=== PATIENT | male | born 1975 | race Caucasian/White ===

== ENCOUNTER 2019-08-21 00:55 | Inpatient (IN) | payer MEDICAID, SELFPAY ==
[2019-08-21] VITALS (11 sets, daily range): BP systolic 132–174; BP diastolic 80–108; PULSE 76–97; RESP 16–20; TEMP 36.6–37.7; O2SAT 93–98; BMI 36.1
[2019-08-21 01:56] LABS: Basophils % 0.2 %; Eosinophils % 0.1 %; Hematocrit 48.8 % (42.0-52.0); Hemoglobin 16.8 g/dL (11.7-16.6); Lymphocytes % 5.7 %; Mean Corpuscular HGB Conc 34.4 g/dL (30.0-36.0); Mean Corpuscular Hemoglobin 35.1 pg (28.0-34.0); Mean Corpuscular Volume 101.9 fL (80-94); Mean Platelet Volume 10.1 fL (7.4-10.4); Monocytes # 0.9 10^3/uL (0.2-0.9); Neutrophils # 15.85 10^3/uL (1.8-7.7); Neutrophils % 88.2 %; Nucleated Red Blood Cells % 0 %; Platelet Count 254 10^3/cmm (130-400); Red Blood Count 4.79 10^6/uL (4.1-5.3); Red Cell Distribution Width 12.3 % (12.1-15.1)
[2019-08-21 02:08] LABS: Alanine Aminotransferase 83 U/L (0-41); Albumin Level 4.3 g/dL (3.5-5.2); Alkaline Phosphatase 71 IU/L (40-130); Anion Gap 19.9 (5-19); Aspartate Amino Transferase 67 U/L (0-40); Blood Urea Nitrogen 11 mg/dL (6-20); Calcium 9.7 mg/dL (8.5-10.5); Carbon Dioxide 21 mmol/L (22-29); Chloride 94 mmol/L (98-107); Glomerular Filtration Rate 81.6 mL/min (90-130); Glucose 234 mg/dL (65-115); Osmolality Calculated 274 mOsm/kg (285-295); Potassium 4.9 mmol/L (3.5-5.1); Sodium 130 mmol/L (136-145); Total Bilirubin 0.7 mg/dL (0.15-1.2); Total Protein 8.3 g/dL (6.6-8.7)
[2019-08-21 02:16] LABS: Lipase 1662 U/L (13-60)
--- NOTE | 2019-08-21 02:31 | US_ITS ---
WS: [id number] RIGHT UPPER QUADRANT ULTRASOUND HISTORY: Abdominal Pain COMPARISON: CT 08/21/2019 Liver: 18.2 cm in length. Moderately enlarged liver with diffuse hepatic steatosis. No mass or bile d uct dilatation. Gallbladder: Contracted gallbladder with stones. Gallbladder wall is normal size. CBD: 0.6 cm Pancreas: Normal size and echogenicity. Right kidney: 11.3 cm in length. Normal echogenicity with no mass or hydronephrosis. Aorta and IVC: Unremarkable. No ascites. US/US gall bladder [id number] IMPRESSION: 1. Cholelithiasis. Contracted gallbladder. 2. Moderate hepatomegaly and hepatic steatosis.
--- NOTE | 2019-08-21 02:43 | CTR_ITS ---
PROCEDURE INFORMATION: Exam: CT Abdomen And Pelvis With Contrast Exam date and time: 08/21/2019 3:40 AM Age: 44 years old Clinical indication: Abdominal pain; Generalized TECHNIQUE: Imaging protocol: Computed tomography of the abdomen and pelvis with intravenous contrast. Radiation optimization: All CT scans at this facility use at least one of these dose optimization techniques: automated exposure control; mA and/or kV adjustment per patient size (includes targeted exams where dose is matched to clinical indication); or iterative reconstruction. Contrast material: [id number]; Contrast volume: 95 ml; Contrast route: INTRAVENOUS (IV); COMPARISON: US abdomen complete* [id number] 08/21/2019 3:06 AM RADIATION DOSE METRICS: Total DLP (mGy-cm): 1770.59 FINDINGS: Lungs: The lung bases are clear. Liver: There is fatty infiltration of the liver. Gallbladder and bile ducts: At least 1 small calcified gallstone is visible within the gallbladder. No other definite gallbladder abnormality by CT. No biliary tree dilation. Pancreas: Moderate presumed inflammatory changes around the pancreas, compatible with acute pancreatitis. Please correlate with clinical and laboratory evaluation. Mild to moderate amount of peripancreatic and retroperitoneal fluid. No definite pseudocyst. No pancreatic duct dilation. The pancreas appears to enhance homogeneously. Spleen: Unremarkable. Adrenals: Unremarkable. Kidneys and ureters: No hydronephrosis of either kidney. No visible ureteral calculus. Mild perinephric stranding bilaterally. This is a nonspecific appearance and could well be chronic. Possibility of pyelonephritis is not entirely excluded, please correlate clinically. Stomach and bowel: Possibility of somewhat thickened mucosa/wall in the distal stomach and proximal duodenum. This is a nonspecific appearance, and could be transient on CT, but could also represent evidence for gastritis/duodenitis or peptic ulcer disease. Please correlate clinically. There are no CT findings to strongly suggest diverticulitis. Appendix: The appendix is visualized and appears normal. Intraperitoneal space: No free air, ascites, or bowel distention. Vasculature: No evidence for abdominal aortic aneurysm. Lymph nodes: No retroperitoneal adenopathy. Bladder: Possibly some mild diffuse urinary bladder wall thickening. While nonspecific, this could indicate evidence for cystitis. Please correlate clinically. Reproductive: Essentially unremarkable for age. Bones/joints: No significant acute finding. Soft tissues: No significant acute finding. CT/CT abdomen pelvis w con* [id number] IMPRESSION: 1. Findings compatible with acute pancreatitis, see above details. 2. Cholelithiasis, details above. 3. Possible thickened mucosa/wall in the distal stomach and proximal duodenum, see above discussion. 4. Possible mild urinary bladder wall thickening, see above. 5. Mild perinephric stranding bilaterally, see above. 6. Other findings discussed above. Radiation Dose CTDIVOL = (mGy): DLP = 1770.59 (mGy-cm)
[2019-08-21] MEDS: sodium chloride 0.9% 1,000 ML 100 ML IV (03:30)
--- NOTE | 2019-08-21 03:31 | W.ED.ABDPA2 ---
HPI - Abdominal Pain General: Chief Complaint: Abdominal Pain Stated Complaint: abd pain; back pain Time Seen by Provider: 08/21/19 02:56 Source: patient Mode of arrival: ambulatory Limitations: no limitations History of Present Illness: HPI narrative: Mr. Copeland is a nice 44-year-old male comes in complaining of upper abdominal pain for the past 2 days. He said associated diaphoresis and nausea and vomiting. Denies any blood in his stools or dark tarry stools. Patient states he recently has been drinking heavily over 14 August hol. He denies any chest pain or shortness of breath. Associated Symptoms: Reports nausea and vomiting; Denies chills, coffee ground emesis, constipation, GI cramping, diarrhea, dysuria, fever(s), heartburn, hematochezia, hematuria, hematemesis, melena and syncope Review of Systems Const: Denies: fever(s), chills, body aches, fatigue, malaise or diaphoresis Eyes: Denies: change in vision, blurry vision, blind spots, photophobia, eye discharge or eye redness ENMT: Denies: throat pain, odynophagia, hoarseness, swelling of lips/tongue, oral sores, ear or mastoid pain, ear discharge, change in hearing or nasal discharge Card: Denies: chest pain, palpitations, irregular heart rhythm, edema, lightheadedness, syncope, pre-syncope, dyspnea on exertion or orthopnea Resp: Denies: dyspnea, productive cough, non-productive cough, wheezing, hemoptysis or chest congestion GI: Reports: abdominal pain, nausea and vomiting; Denies: hematemesis, coffee ground emesis, heartburn, diarrhea, constipation, GI cramping, hematochezia or melena : Denies: flank pain, dysuria, urinary frequency, urinary urgency or hematuria Musc: Denies: neck pain, back pain, extremity pain, extremity swelling, joint pain, joint swelling, joint redness, joint warmth or joint stiffness Skin/Breast: Denies: rash, pruritus, erythema, skin tenderness or jaundice Neuro: Denies: headache(s), numbness in extremities, weakness in extremities, sensory changes, lack of coordination, difficulty walking, dizziness, vertigo, confusion, Slurred speech present or seizure-like activity Mitch/Lymph: Denies: easy bruising, easy bleeding, petechiae, purpura or enlarged lymph nodes All/Imm: Denies: urticaria, throat swelling, tongue swelling, facial swelling or acute wheezing PFSH ED PFSH: Medical History Degenerative disc disease Hypertension Seizures Physical Exam Const: COMMON NORMALS: no acute distress, patient oriented x3, no limitations, healthy appearing and well nourished GENERAL APPEARANCE: cooperative, well kempt and well developed HENMT: COMMON NORMALS: normocephalic, atraumatic, external ears normal, EAC's normal and Normal external nose present HEAD & SCALP: normal to inspection, normocephalic and atraumatic FACE & SINUS: normal facial exam and face symmetric NOSE: Normal external nose present and Normal nares present EXTERNAL EAR: Yes external ears normal EXTERNAL AUDITORY CANAL: EAC's normal MOUTH: Normal oral and palatal mucosa present, lip normal and tongue normal Eye: COMMON NORMALS: Equal, round and reactive pupils present and conjunctivae normal GENERAL EYE: appearance normal, both eyes and all related structures ALIGNMENT: Yes alignment normal PERIORBITAL: periorbital findings normal EYELID: eyelids normal CONJUNCTIVA: Yes conjunctivae normal SCLERA: sclerae normal PUPIL: Yes Equal, round and reactive pupils present Neck/C-Spine: COMMON NORMALS: full ROM, no lymphadenopathy, supple, no meningeal signs and no JVD GENERAL: Yes normal visual inspection and Yes trachea midline Chest: COMMONS NORMALS: normal inspection of the chest and normal palpation of entire chest wall Resp: COMMON NORMALS: normal respiratory effort, No retractions and No use of accessory muscles EFFORT & INSPECTION: Yes able to speak in complete sentences and Yes symmetric chest movement AUSCULTATION: no crackles, no rales, no rhonchi and no wheezes Cardio: COMMON NORMALS: no JVD, regular rate, regular rhythm, S1 normal heart sound present and S2 normal heart sound present RATE: regular rate RHYTHM: regular rhythm HEART SOUNDS: S1 normal heart sound present, S2 normal heart sound present, no click, no gallops, no murmurs, no rubs and abnormal split S2 GI: COMMON NORMALS: Soft to palpation and No hepatosplenomegaly present PALPATION: Yes Soft to palpation, Yes Tenderness to palpation present (GI), No Guarding due to palpation present (GI), No Rigid due to palpation, Yes No hepatosplenomegaly present, No Hernia present, No Palpable mass present and No Pulsatile mass present : COMMON NORMALS: Yes no CVA tenderness BLADDER/KIDNEY EXAM: Yes no CVA tenderness Back/Pelvis: COMMON NORMALS: no CVA tenderness, thoracic and lumbar spine normal to inspection, no thoracic nor lumbar tenderness and thoraco-lumbar ROM normal Extremity: COMMON NORMALS: normal to inspection, full ROM, capillary refill normal, no joint enlargement, no clubbing, cyanosis or edema and no calf tenderness Neuro: COMMON NORMALS: patient oriented x3, CN's II-XII intact bilaterally, moves all extremities, no focal motor deficits and no sensory deficits noted MENINGEAL SIGNS: Yes no meningeal signs SPEECH: speech normal Psych: COMMON NORMALS: mental status grossly normal, Normal thought process present, cooperative, normal affect, speech normal and activity/motor behavior normal APPEARANCE: Yes well kempt SPEECH: Yes normal speech THOUGHT PROCESS: Normal thought process present Skin: COMMON NORMALS: no rashes or lesions noted, turgor normal, no jaundice, no petechiae and no mottling GENERAL SKIN EXAM: no rashes or lesions noted and turgor normal Course Vital Signs: Vital signs: Vital Signs Temperature 98.7 F 08/21/19 01:01 Pulse Rate 86 08/21/19 05:09 Respiratory Rate 16 08/21/19 05:09 Blood Pressure 169/90 08/21/19 05:09 Pulse Oximetry 98 08/21/19 05:09 MDM - Abdominal Pain MDM Narrative: Medical decision making narrative: Patient's ultrasound does not show evidence of common bile duct obstruction. Triglycerides are normal. Based upon his history that his pancreatitis is likely caused by alcohol and he is recently been binging. Patient will go ahead and be admitted to control his pain and to calm down the inflammation. He still getting IV fluids. The case was endorsed to Dr. Mercer and she is agreeable to admission. Lab Data: Attestation: I reviewed the patient's lab results. Labs: Lab Results 08/21/19 08/21/19 08/21/19 Range/Units 01:30 01:30 01:30 WBC 18.0 H (4.0-10.0) 10^3/ uL RBC 4.79 (4.1-5.3) 10^6/u L Hgb 16.8 H (11.7-16.6) g/dL Hct 48.8 (42.0-52.0) % MCV 101.9 H (80-94) fL MCH 35.1 H (28.0-34.0) pg MCHC 34.4 (30.0-36.0) g/dL RDW 12.3 (12.1-15.1) % Plt Count 254 (130-400) 10^3/c mm MPV 10.1 (7.4-10.4) fL Neut % (Auto) 88.2 % Lymph % (Auto) 5.7 % [place] % (Auto) 5.0 % Eos % (Auto) 0.1 % Baso % (Auto) 0.2 % Neut # (Auto) 15.85 H (1.8-7.7) 10^3/u L Lymph # (Auto) 1.0 (0.8-4.8) 10^3/u L [place] # (Auto) 0.9 (0.2-0.9) 10^3/u L Eos # (Auto) 0.0 (0.0-0.8) 10^3/u L Baso # (Auto) 0.0 (0.0-0.1) 10^3/u L Nucleated RBC % (a uto) 0 % Nucleated RBCs # 0.0 /100WBC Sodium 130 L (136-145) mmol/L Potassium 4.9 (3.5-5.1) mmol/L Chloride 94 L (98-107) mmol/L Carbon Dioxide 21 L (22-29) mmol/L Anion Gap 19.9 H (5-19) BUN 11 (6-20) mg/dL Creatinine 1.0 (0.7-1.2) mg/dL GFR Calculation 81.6 L (90-130) mL/min Glucose 234 H (65-115) mg/dL Calculated Osmolal ity 274 L (285-295) mOsm/k g Calcium 9.7 (8.5-10.5) mg/dL Total Bilirubin 0.7 (0.15-1.2) mg/dL AST 67 H (0-40) U/L ALT 83 H (0-41) U/L Alkaline Phosphata se 71 (40-130) IU/L Total Protein 8.3 (6.6-8.7) g/dL Albumin 4.3 (3.5-5.2) g/dL Globulin 4.0 (1.3-4.6) g/dL Triglycerides 269 H (0-150) mg/dL Lipase 1662 H (13-60) U/L Urine Color (Yellow) Urine Appearance (CLEAR) Urine pH (5-7) Ur Specific Gravit y (1.005-1.030) Urine Protein (Negative) Urine Glucose (UA) (Normal) Urine Ketones (Negative) Urine Blood (Negative) Urine Nitrate (Negative) Urine Bilirubin (NEGATIVE) Urine Urobilinogen (Negative) mg/dL Ur Leukocyte Shannan ase (Negative) Urine RBC (0-2) /hpf Urine WBC (0-5) /hpf Ur Squamous Epith Cells (0-5) Urine Bacteria (NONE) Ethyl Alcohol < 10 (0-10) mg/dL 08/21/19 Range/Units 03:20 WBC (4.0-10.0) 10^3/ uL RBC (4.1-5.3) 10^6/u L Hgb (11.7-16.6) g/dL Hct (42.0-52.0) % MCV (80-94) fL MCH (28.0-34.0) pg MCHC (30.0-36.0) g/dL RDW (12.1-15.1) % Plt Count (130-400) 10^3/c mm MPV (7.4-10.4) fL Neut % (Auto) % Lymph % (Auto) % [place] % (Auto) % Eos % (Auto) % Baso % (Auto) % Neut # (Auto) (1.8-7.7) 10^3/u L Lymph # (Auto) (0.8-4.8) 10^3/u L [place] # (Auto) (0.2-0.9) 10^3/u L Eos # (Auto) (0.0-0.8) 10^3/u L Baso # (Auto) (0.0-0.1) 10^3/u L Nucleated RBC % (a uto) % Nucleated RBCs # /100WBC Sodium (136-145) mmol/L Potassium (3.5-5.1) mmol/L Chloride (98-107) mmol/L Carbon Dioxide (22-29) mmol/L Anion Gap (5-19) BUN (6-20) mg/dL Creatinine (0.7-1.2) mg/dL GFR Calculation (90-130) mL/min Glucose (65-115) mg/dL Calculated Osmolal ity (285-295) mOsm/k g Calcium (8.5-10.5) mg/dL Total Bilirubin (0.15-1.2) mg/dL AST (0-40) U/L ALT (0-41) U/L Alkaline Phosphata se (40-130) IU/L Total Protein (6.6-8.7) g/dL Albumin (3.5-5.2) g/dL Globulin (1.3-4.6) g/dL Triglycerides (0-150) mg/dL Lipase (13-60) U/L Urine Color Yellow (Yellow) Urine Appearance Cloudy (CLEAR) Urine pH 5 (5-7) Ur Specific Gravit y 1.015 (1.005-1.030) Urine Protein Neg (Negative) Urine Glucose (UA) 4+ H (Normal) Urine Ketones Negative (Negative) Urine Blood Neg (Negative) Urine Nitrate Negative (Negative) Urine Bilirubin Neg (NEGATIVE) Urine Urobilinogen Norm (Negative) mg/dL Ur Leukocyte Shannan ase Negative (Negative) Urine RBC 0-4 H (0-2) /hpf Urine WBC 0-4 H (0-5) /hpf Ur Squamous Epith Cells None (0-5) Urine Bacteria None (NONE) Ethyl Alcohol (0-10) mg/dL Imaging Data ^: US: My impression: Ultrasound abdomen, tech interpretation -gallbladder with gallstones but no wall thickening. Common bile duct is normal. Kidney normal. Pancreas is inflamed. No free fluid. CT Abd/Pel: Radiologist's impression: [address] [place] [address] CT Scan Report Signed Patient: Nelson Copeland Unit #: [id number] : 1975 Age/Sex: 44 / M ADM Date: 08/21/19 Loc: ER Room/Bed: Attending Dr: Ordering Provider/Ordering MD: Jacqueline Uribe DO Date of Service: 08/21/19 Procedure(s): CT abdomen pelvis w con* [id number] Accession Number(s): [id number] Report Number: [id number] PROCEDURE INFORMATION: Exam: CT Abdomen And Pelvis With Contrast Exam date and time: 08/21/2019 3:40 AM Age: 44 years old Clinical indication: Abdominal pain; Generalized TECHNIQUE: Imaging protocol: Computed tomography of the abdomen and pelvis with intravenous contrast. Radiation optimization: All CT scans at this facility use at least one of these dose optimization techniques: automated exposure control; mA and/or kV adjustment per patient size (includes targeted exams where dose is matched to clinical indication); or iterative reconstruction. Contrast material: [id number]; Contrast volume: 95 ml; Contrast route: INTRAVENOUS (IV); COMPARISON: US abdomen complete* [id number] 08/21/2019 3:06 AM RADIATION DOSE METRICS: Total DLP (mGy-cm): 1770.59 FINDINGS: Lungs: The lung bases are clear. Liver: There is fatty infiltration of the liver. Gallbladder and bile ducts: At least 1 small calcified gallstone is visible within the gallbladder. No other definite gallbladder abnormality by CT. No biliary tree dilation. Pancreas: Moderate presumed inflammatory changes around the pancreas, compatible with acute pancreatitis. Please correlate with clinical and laboratory evaluation. Mild to moderate amount of peripancreatic and retroperitoneal fluid. No definite pseudocyst. No pancreatic duct dilation. The pancreas appears to enhance homogeneously. Spleen: Unremarkable. Adrenals: Unremarkable. Kidneys and ureters: No hydronephrosis of either kidney. No visible ureteral calculus. Mild perinephric stranding bilaterally. This is a nonspecific appearance and could well be chronic. Possibility of pyelonephritis is not entirely excluded, please correlate clinically. Stomach and bowel: Possibility of somewhat thickened mucosa/wall in the distal stomach and proximal duodenum. This is a nonspecific appearance, and could be transient on CT, but could also represent evidence for gastritis/duodenitis or peptic ulcer disease. Please correlate clinically. There are no CT findings to strongly suggest diverticulitis. Appendix: The appendix is visualized and appears normal. Intraperitoneal space: No free air, ascites, or bowel distention. Vasculature: No evidence for abdominal aortic aneurysm. Lymph nodes: No retroperitoneal adenopathy. Bladder: Possibly some mild diffuse urinary bladder wall thickening. While nonspecific, this could indicate evidence for cystitis. Please correlate clinically. Reproductive: Essentially unremarkable for age. Bones/joints: No significant acute finding. Soft tissues: No significant acute finding. CT/CT abdomen pelvis w con* [id number] IMPRESSION: 1. Findings compatible with acute pancreatitis, see above details. 2. Cholelithiasis, details above. 3. Possible thickened mucosa/wall in the distal stomach and proximal duodenum, see above discussion. 4. Possible mild urinary bladder wall thickening, see above. 5. Mild perinephric stranding bilaterally, see above. 6. Other findings discussed above. Radiation Dose CTDIVOL = (mGy): DLP = 1770.59 (mGy-cm) Dictated By: Los Higuera MD Signed By: Los Higuera MD Signed Date/Time: 08/21/19458 DD/ 6 Discharge Plan Discharge Patient Disposition: Admitted As Inpatient Clinical Impression: Pancreatitis Condition: Stable Prescriptions: No Action metoprolol succinate 50 mg tablet extended release 24 hr PO RF: 0 Coding Level of Care Code ED Aviation Safety Inspector for Chg Fwd Exam Comprehensive
[2019-08-21] MEDS: sodium chloride 0.9% 1,000 ML 999 ML IV (03:49)
[2019-08-21] MEDS: morphine 4 mg/mL SDV 1 mL IVP ×3 (03:49→21:59)
[2019-08-21] MEDS: ondansetron 2 mg/ML SDV 2 mL 4 MG IVP (03:50)
[2019-08-21] MEDS: iohexol 300 mg/mL 100 mL Btl IV (04:14)
[2019-08-21 04:38] LABS: Triglycerides 269 mg/dL (0-150)
[2019-08-21 04:42] LABS: Alcohol Level < 10 mg/dL (0-10)
[2019-08-21 05:04] LABS: Specific Gravity, Urine 1.015 (1.005-1.030); Urine Appearance Cloudy (CLEAR); Urine Color Yellow (Yellow); pH Urine 5 (5-7)
[2019-08-21 05:05] LABS: Bilirubin Urine Neg (NEGATIVE); Blood Urine Neg (Negative); Glucose Urine UA 4+ (Normal); Ketones Urine Negative (Negative); Leukocyte Esterase Urine Negative (Negative); Nitrate Urine Negative (Negative); Protein Urine Neg (Negative); RBC Urine 0-4 /hpf (0-2); Urobilinogen Urine Norm (Negative); WBC Urine 0-4 /hpf (0-5)
[2019-08-21] MEDS: pantoprazole 40 mg SDV 80 MG IVP (05:25)
[2019-08-21] MEDS: HYDROmorphone 1 mg/mL INJ 1 mL IVP (05:26)
--- NOTE | 2019-08-21 05:38 | PM.HP ---
Providers/Chief Complaint Chief Complaint: abd pain; back pain History of Present Illness Nelson Copeland is a 44 year old male Medications/Allergies Home Medications Medication Instructions Recorded Confirmed Last Taken Type metoprolol succinate PO 08/21/19 08/21/19 Unknown History Allergies Allergy/AdvReac Type Severity Reaction Status Date / Time No Known Allergies Allergy Verified 08/21/19 05:34 PFSH Acute PFSH: Medical History Degenerative disc disease Hypertension Seizures Vitals/I&O/Wt Last Vital Signs Temp 98.7 F 08/21/19 01:01 Pulse 86 08/21/19 05:09 Resp 16 08/21/19 05:09 BP 169/90 08/21/19 05:09 Pulse Ox 98 08/21/19 05:09 Weight last 48 hrs Weight 114.305 kg Data : 08/21/19 01:30 08/21/19 01:30 Other Labs: Liver Function 08/21/19 Range/Units 01:30 Total Bilirubin 0.7 (0.15-1.2) mg/dL AST 67 H (0-40) U/L ALT 83 H (0-41) U/L Alkaline Phosphatase 71 (40-130) IU/L Albumin 4.3 (3.5-5.2) g/dL Urine 08/21/19 Range/Units 03:20 Urine Color Yellow (Yellow) Urine Appearance Cloudy (CLEAR) Urine pH 5 (5-7) Ur Specific [place] 1.015 (1.005-1.030) Urine Protein Neg (Negative) Urine Glucose (UA) 4+ H (Normal) Laboratory Tests 08/21/19 08/21/19 01:30 01:30 Triglycerides 269 H Lipase 1662 H Ethyl Alcohol < 10 Micro: Microbiology 08/21/19 01:30 Blood Culture - Preliminary Blood SPECIMEN COLLECTED 08/21/19 01:30 Blood Culture - Preliminary Blood SPECIMEN COLLECTED CT Abd/Pel: Radiologist's impression: FINDINGS: Lungs: The lung bases are clear. Liver: There is fatty infiltration of the liver. Gallbladder and bile ducts: At least 1 small calcified gallstone is visible within the gallbladder. No other definite gallbladder abnormality by CT. No biliary tree dilation. Pancreas: Moderate presumed inflammatory changes around the pancreas, compatible with acute pancreatitis. Please correlate with clinical and laboratory evaluation. Mild to moderate amount of peripancreatic and retroperitoneal fluid. No definite pseudocyst. No pancreatic duct dilation. The pancreas appears to enhance homogeneously. Spleen: Unremarkable. Adrenals: Unremarkable. Kidneys and ureters: No hydronephrosis of either kidney. No visible ureteral calculus. Mild perinephric stranding bilaterally. This is a nonspecific appearance and could well be chronic. Possibility of pyelonephritis is not entirely excluded, please correlate clinically. Stomach and bowel: Possibility of somewhat thickened mucosa/wall in the distal stomach and proximal duodenum. This is a nonspecific appearance, and could be transient on CT, but could also represent evidence for gastritis/duodenitis or peptic ulcer disease. Please correlate clinically. There are no CT findings to strongly suggest diverticulitis. Appendix: The appendix is visualized and appears normal. Intraperitoneal space: No free air, ascites, or bowel distention. Vasculature: No evidence for abdominal aortic aneurysm. Lymph nodes: No retroperitoneal adenopathy. Bladder: Possibly some mild diffuse urinary bladder wall thickening. While nonspecific, this could indicate evidence for cystitis. Please correlate clinically. Reproductive: Essentially unremarkable for age. Bones/joints: No significant acute finding. Soft tissues: No significant acute finding. CT/CT abdomen pelvis w con* [id number] IMPRESSION: 1. Findings compatible with acute pancreatitis, see above details. 2. Cholelithiasis, details above. 3. Possible thickened mucosa/wall in the distal stomach and proximal duodenum, see above discussion. 4. Possible mild urinary bladder wall thickening, see above. 5. Mild perinephric stranding bilaterally, see above. 6. Other findings discussed above. Coding Level of Care Code Acute Gasoline Truck Operator for Siva Stoddard
--- NOTE | 2019-08-21 06:08 | P.CONIM_ITS ---
Providers/Reason For Consult Consulting Physican/Specialty*: frase Reason for Consult*: consult Meds/Allergies Home Medications and Allergies Home Medications Medication Instructions Recorded Confirmed Last Taken Type metoprolol succinate PO 08/21/19 08/21/19 Unknown History Allergies Allergy/AdvReac Type Severity Reaction Status Date / Time No Known Allergies Allergy Verified 08/21/19 05:34 Current Medications Current Medications Generic Name Dose Route Start Last Admin Trade Name Freq PRN Reason Stop Dose Admin Sodium Chloride 1,000 mls @ 100 mls/hr 08/21/19 03:30 08/21/19 03:30 Sodium Chloride 0.9% IV 100 mls/hr .Q10H DEBBIE Administration PFSH Acute PFSH: Medical History Degenerative disc disease Hypertension Seizures Vitals/I&O/Wt Last Vital Signs Temp 98.7 F 08/21/19 01:01 Pulse 86 08/21/19 05:09 Resp 16 08/21/19 05:09 BP 169/90 08/21/19 05:09 Pulse Ox 98 08/21/19 05:09 Weight last 48 hrs Weight 114.305 kg A&P Additional A&P Information testing Consult Attestations Time Spent in Patient Care: Greater than 35 minutes total time 58 Coding Level of Care Code Acute Cassandra Developer for Siva Stoddard
--- NOTE | 2019-08-21 06:14 | P.HP_ITS ---
Providers/Chief Complaint Admitting Physician: Eleanor Calles Primary Care Provider: Allison Galeano Chief Complaint: abd pain; back pain History of Present Illness Nelson Copeland is a 44 year old male who presented to the emergency room with chief complaint of abdominal discomfort. Symptoms have been going on for several days. He states that Saturday night he seemed like he had a lot of heartburn or reflux. He ate some cereal late and drank it with regular milk rather than almond milk. He began having abdominal pain that was generalized in nature along with increased belching and flatulence. He was drinking a lot of water to try to hydrate himself but continued to not feel well. The following day he ate some turnips and potatoes and other food that his mother had fixed and after that started having nausea and vomiting. He vomited multiple times but nausea was the persistent factor. He describes gas pain that he took a lot of Gas-X for without any relief. He has had a little bit of loose stool the last 2 days. No blood in his stools. He knows that he has had gallstones identified in the past and he thought maybe his gallstones were bothering him. He came in to be evaluated because the pain kept escalating and was severe in nature. No report of any fever. He has not really had anything quite like this before. In talking with him he had quite a few beers on August 13 as well as on August 14. He again drank quite a bit on August 17 the day before his symptoms began. He probably has a few beers every day. He has quit drinking for several years in the past without issue. He was ultimately found to have evidence of pancreatitis with a lipase greater than 1600. He has never had pancreatitis before. His white count was 18,000. He received some morphine and Zofran in the emergency room with clinical improvement. He is being admitted for further care. Review of Systems Const: Reports: change in appetite; Denies: fever(s) or chills Eyes: Denies: change in vision ENMT: Reports: dry mouth; Denies: throat pain or nasal congestion Card: Denies: chest pain, palpitations or edema Resp: Denies: dyspnea, productive cough or non-productive cough GI: Reports: abdominal pain, nausea, vomiting, heartburn, diarrhea, bloating, GI cramping, belching and excessive flatus; Denies: constipation or hematochezia : Reports: oliguria; Denies: difficulty urinating Musc: Reports: neck pain (needs surgery per his report) Skin/Breast: Denies: rash or pruritus Neuro: Reports: restless legs; Denies: headache(s), numbness in extremities, weakness in extremities, dizziness or seizure-like activity Psych: Reports: anxiety; Denies: depression Mitch/Lymph: Denies: easy bruising or easy bleeding Medications/Allergies Home Medications Medication Instructions Recorded Confirmed Last Taken Type alprazolam 0.5 - 1 mg PO DAILY PRN 08/21/19 08/21/19 Unknown History cyclobenzaprine 10 mg PO TID PRN 08/21/19 08/21/19 Unknown History fluticasone propionate [Flonase 2 spray INTRANASAL DAILY 08/21/19 08/21/19 08/20/19 13:00 History Allergy Relief] levetiracetam 1,000 mg PO BID 08/21/19 08/21/19 08/20/19 13:00 History lisinopril 40 mg PO DAILY 08/21/19 08/21/19 08/20/19 13:00 History metoprolol succinate 100 mg PO BID 08/21/19 08/21/19 08/20/19 13:00 History mupirocin 1 applic TOPICAL BID 08/21/19 08/21/19 08/20/19 13:00 History omeprazole 20 mg PO BID 08/21/19 08/21/19 08/20/19 13:00 History ropinirole 1 mg PO BEDTIME 08/21/19 08/21/19 08/20/19 13:00 History sertraline 200 mg PO DAILY 08/21/19 08/21/19 08/20/19 13:00 History sulfamethoxazole-trimethoprim 1 tab PO BID 08/21/19 08/21/19 08/20/19 13:00 History Allergies Allergy/AdvReac Type Severity Reaction Status Date / Time No Known Allergies Allergy Verified 08/21/19 05:34 PFSH Acute PFSH: Medical History (Updated 08/21/19 @ 08:10 by Eleanor Calles MD) Anxiety Degenerative disc disease neck GERD (gastroesophageal reflux disease) Hypertension Restless leg syndrome Seizures onset 2017, last 2019 Surgical History (Updated 08/21/19 @ 06:28 by Eleanor Calles MD) No pertinent past surgical history Family History (Updated 08/21/19 @ 06:29 by Eleanor Calles MD) Other CAD (coronary artery disease) Diabetes Hypertension Denies family history of Pancreatitis Social History (Updated 08/21/19 @ 06:30 by Eleanor Calles MD) Smoking and tobacco status: current every day smoker cigarettes Number of cigarettes per day: 11-20 Alcohol intake: current Alcohol type: beer Alcohol use comment: 6pack + Substance/Drug Use: never Household members: other Details: 12 year old son Vitals/I&O/Wt Last Vital Signs Temp 98.7 F 08/21/19 01:01 Pulse 86 08/21/19 05:09 Resp 16 08/21/19 05:09 BP 169/90 08/21/19 05:09 Pulse Ox 98 08/21/19 05:09 Weight last 48 hrs Weight 114.305 kg Physical Exam Const: OTHER: Alert, oriented x3, cooperative HENMT: OTHER: Normocephalic atraumatic, dry mucus membranes Eye: OTHER: Pupils equally round and reactive to light, injected sclera Neck/C-Spine: OTHER: Supple, larg, no thyromegaly or lymphadenopathy Resp: OTHER: Clear to auscultation bilaterally, no rales, rhonchi or wheezes noted, no accessory muscle use noted, not tachypneic Cardio: OTHER: Regular rate and rhythm, no murmurs gallops or rubs. Pulses equal throughout. GI: OTHER: Abdomen soft, tender to palpation upper quadrants, left>right, without rebound or guarding, nondistended with positive bowel sounds : OTHER: Deferred Extremity: NARRATIVE EXTREMITY EXAM: No cyanosis, clubbing or edema, no acute synovitis Neuro: OTHER: Face symmetric, speech clear, moves all extremities, no tremors or other abnormal movements Psych: OTHER: Normal affect Skin: OTHER: Several sores in different stages of healing to extensor surfaces Data : 08/21/19 01:30 08/21/19 01:30 Other Labs: Liver Function 08/21/19 Range/Units 01:30 Total Bilirubin 0.7 (0.15-1.2) mg/dL AST 67 H (0-40) U/L ALT 83 H (0-41) U/L Alkaline Phosphatase 71 (40-130) IU/L Albumin 4.3 (3.5-5.2) g/dL Urine 08/21/19 Range/Units 03:20 Urine Color Yellow (Yellow) Urine Appearance Cloudy (CLEAR) Urine pH 5 (5-7) Ur Specific [place] 1.015 (1.005-1.030) Urine Protein Neg (Negative) Urine Glucose (UA) 4+ H (Normal) Micro: Microbiology 08/21/19 01:30 Blood Culture - Preliminary Blood SPECIMEN COLLECTED 08/21/19 01:30 Blood Culture - Preliminary Blood SPECIMEN COLLECTED A&P Assessment and plan (1) Pancreatitis: Status: Acute Qualifiers: Acute pancreatitis complication: no infection or necrosis Chronicity: acute Pancreatitis type: alcohol induced Qualified Code(s): K85.20 - Alcohol induced acute pancreatitis without necrosis or infection (2) Daily consumption of alcohol: Status: Acute (3) Hypertension: Status: Chronic Qualifiers: Hypertension type: essential hypertension Qualified Code(s): I10 - Essential (primary) hypertension (4) Anxiety: Status: Chronic (5) Degenerative disc disease: Status: Chronic Qualifiers: Spinal region: unspecified cervical region Qualified Code(s): M50.30 - Other cervical disc degeneration, unspecified cervical region (6) Restless leg syndrome: Status: Chronic (7) Seizures: Status: Chronic (8) GERD (gastroesophageal reflux disease): Status: Chronic Qualifiers: Esophagitis presence: without esophagitis Qualified Code(s): K21.9 - Gastro-esophageal reflux disease without esophagitis (9) Seasonal allergies: Status: Chronic (10) Nicotine dependence, cigarettes, uncomplicated: Status: Chronic Additional A&P Information Inpatient admission IV fluids Clear liquid diet Pain control as needed Nicotine patch if needed Alcohol withdrawal protocol Home medications as ordered Reviewed with patient that continuing to consume alcohol increases the possibil ity of him having recurrent pancreatitis. Also reviewed with him that even if he were to quit drinking today he could have recurrent pancreatitis in the future. We talked about low-fat diet and the general management plan for pancreatitis. We talked briefly about ways to cut down on drinking as well as smoking cessation. Patient indicates that he quit drinking for a long time in the past. Lovenox for DVT prophylaxis PPI Plans were discussed with patient and he was given an opportunity to ask questions Supportive care otherwise Full code Attestations Medical Necessity Statement*: Anticipated stay greater than 2 midnights and patient presenting with first episode of pancreatitis related to alcohol use. He has had recent binge drinking. He has associated elevation in white count, mild elevation in transaminases and admits to daily alcohol use. Plans are as indicated. Coding Level of Care Code Acute Support Team Member for Evelyng Fwd Diagnoses Pancreatitis K85.20 Acute pancreatitis complication: no infection or necrosis Chronicity: acute Pancreatitis type: alcohol induced Daily consumption of alcohol Z78.9 Hypertension I10 Hypertension type: essential hypertension Anxiety F41.9 Degenerative disc disease M50.30 Spinal region: unspecified cervical region Restless leg syndrome G25.81 Seizures R56.9 GERD (gastroesophageal reflux disease) K21.9 Esophagitis presence: without esophagitis Seasonal allergies J30.2 Nicotine dependence, cigarettes, uncomplicated F17.210
[2019-08-21 08:34] LABS: Cholesterol 243 mg/dL (0-200); HDL Cholesterol 45 mg/dL (60-100); LDL Cholesterol Calculated 144 mg/dL (50-129); Triglycerides 269 mg/dL (0-150)
[2019-08-21 08:42] LABS: INR 0.99 (0.8-1.2)
[2019-08-21 08:43] LABS: Estmated Average Glucose 186; Hemoglobin A1C 8.1 % (4.0-6.0); Partial Thromboplastin Time 26.2 SECONDS (23.9-36.7)
--- NOTE | 2019-08-21 09:25 | PC.CHAP ---
Pastoral Care Encounter/Spiritual Assessment Type of Contact [] Declined multiple punch press operator visit [] Patient/Family/Request visit [] Outpatient visit [] Follow-up visit [] Physician referral [] Code/Alert [x] Routine visit [] Staff referral [] Actively dying [] Patient sleeping [] Family support [] [] Out of room [] Palliative care [] [] Receiving care in room [] Pre-surgical visit [] Trauma [] Long length of stay [] ICU visit [] Other: Relational/Emotional Strength [] Patient feels connected with others/family/visitors/staff [] Distress [] Loneliness/isolation [] Abandonment Spirituality of Patient [] Person of Madisyn [] Attends Rastafarian of their Madisyn [] Believes in Prayer [] Reads Bible or Hinduism materials [] There are Spiritual issues to be addressed Hand Presser Interventions [x] Prayer [x] Active listening [x] Non-anxious presence [x] Spiritual/emotional support [] Crisis/trauma care [] Spiritual counseling [] Bereavement support [] Provided bereavement packet [] Provided Bible/devotional materials [] Provided toy/stuffed animal, coloring book to patient or family member [] Provided Communion [] Anointing/[place] [] Salvation [x] Completed spiritual assessment [] Other: Impact on Illness or Injury [] Angry [] Fearful [] Anxious [] Often cries [] Exhaustion [] Unable to work [] Unable to attend yarsani [] Unable to walk/stand [] Unable to read [] Unable to drive [] Unable to eat/drink [] Unable to sleep [] Unable to be with family [] Patient intubated [] Other: Summary Patient still having major issues with abd. Trying to rest Time spent with patient 10 min
[2019-08-21 09:48] LABS: Glucose Point of Care 182 mg/dL (70-110)
[2019-08-21] MEDS: levETIRAcetam 500 mg Tablet 1000 MG PO ×2 (10:02→17:29)
[2019-08-21] MEDS: sulfamethoxazole-trimeth DS 160-800 mg Tablet 1 TAB PO ×2 (10:03→17:29)
[2019-08-21] MEDS: lisinopril 20 mg Tablet 40 MG PO (10:04)
[2019-08-21] MEDS: metoprolol succinate ER (24 HR) 100 mg Tablet PO ×2 (10:05→17:29)
[2019-08-21] MEDS: sertraline 100 mg Tablet 200 MG PO (10:06)
[2019-08-21] MEDS: pantoprazole DR 40 mg Tablet PO (10:07)
[2019-08-21] MEDS: docusate sodium 100 mg Capsule PO ×2 (10:08→17:30)
[2019-08-21] MEDS: multivitamin therapeutic Tablet 1 TAB PO (10:08)
[2019-08-21] MEDS: folic acid 1 mg Tablet PO (10:08)
[2019-08-21] MEDS: enoxaparin 40 mg/0.4 mL Syringe SUBCUT (10:10)
[2019-08-21] MEDS: sodium chloride 0.9% 1,000 ML 150 ML IV ×3 (10:23→22:00)
[2019-08-21] MEDS: fluticasone nasal spray 16gm Btl 2 SPRAY INTRANASAL ×2 (10:27→17:31)
[2019-08-21] MEDS: mupirocin oint 22 gm 1 APPLIC TOPICAL ×2 (10:29→17:31)
[2019-08-21 10:51] LABS: Glucose Point of Care 164 mg/dL (70-110)
--- NOTE | 2019-08-21 12:16 | PC.RESP ---
Smoking Cessation information and a schedule of classes sent to patient.
--- NOTE | 2019-08-21 13:04 | PC.RESP ---
Smoking Cessation information and a schedule of classes sent to patient.
[2019-08-21] MEDS: LORazepam 2 mg Tablet PO (14:46)
[2019-08-21 17:24] LABS: Glucose Point of Care 156 mg/dL (70-110)
--- NOTE | 2019-08-21 17:46 | PM.PN ---
Subjective Subjective: Interval history: improving pain today, tolerating small sips of clear liquid diet. Medications: Reviewed: Yes Vitals/I&O/Wt Last Vital Signs Temp 98.0 F 08/21/19 16:00 Pulse 76 08/21/19 16:00 Resp 18 08/21/19 16:00 BP 132/80 08/21/19 16:00 Pulse Ox 96 08/21/19 16:00 08/21/19 08/21/19 08/21/19 06:59 14:59 22:59 Intake Total 1000 / 1000 Output Total 400 / 400 600 / 1000 Balance -400 / -400 400 / 0 Weight last 48 hrs Weight 114.305 kg Physical Exam Narrative: EXAM NARRATIVE: GEN: Awake, alert and oriented, no acute distress CVS: S1S2 N RS: CTA B/L Abd: Soft, nt/nd , bs+, mild TTP over epigastric area BROACHING MACHINE OPERATOR: no focal neuro deficits Data : 08/21/19 01:30 08/21/19 01:30 Micro: Microbiology 08/21/19 01:30 Blood Culture - Preliminary Blood SPECIMEN COLLECTED 08/21/19 01:30 Blood Culture - Preliminary Blood SPECIMEN COLLECTED A&P Assessment and plan (1) Pancreatitis: Status: Acute Qualifiers: Acute pancreatitis complication: no infection or necrosis Chronicity: acute Pancreatitis type: alcohol induced Qualified Code(s): K85.20 - Alcohol induced acute pancreatitis without necrosis or infection (2) Daily consumption of alcohol: Status: Acute (3) Hypertension: Status: Chronic Qualifiers: Hypertension type: essential hypertension Qualified Code(s): I10 - Essential (primary) hypertension (4) Anxiety: Status: Chronic (5) Degenerative disc disease: Status: Chronic Qualifiers: Spinal region: unspecified cervical region Qualified Code(s): M50.30 - Other cervical disc degeneration, unspecified cervical region (6) Restless leg syndrome: Status: Chronic (7) Seizures: Status: Chronic (8) GERD (gastroesophageal reflux disease): Status: Chronic Qualifiers: Esophagitis presence: without esophagitis Qualified Code(s): K21.9 - Gastro-esophageal reflux disease without esophagitis (9) Seasonal allergies: Status: Chronic (10) Nicotine dependence, cigarettes, uncomplicated: Status: Chronic Additional A&P Information Inpatient admission IV fluids continue clear liquid diet for now Pain control as needed Nicotine patch if needed Alcohol withdrawal protocol Home medications as ordered Lovenox for DVT prophylaxis PPI Full code Attestations Medical Necessity Statement*: acute pancretaitis, need for IVF and supportive management Coding Level of Care Code Acute Interventional Sale Consultant for g Fwd Diagnoses Pancreatitis K85.20 Acute pancreatitis complication: no infection or necrosis Chronicity: acute Pancreatitis type: alcohol induced Daily consumption of alcohol Z78.9 Hypertension I10 Hypertension type: essential hypertension Anxiety F41.9 Degenerative disc disease M50.30 Spinal region: unspecified cervical region Restless leg syndrome G25.81 Seizures R56.9 GERD (gastroesophageal reflux disease) K21.9 Esophagitis presence: without esophagitis Seasonal allergies J30.2 Nicotine dependence, cigarettes, uncomplicated F17.210
[2019-08-21 18:40] LABS: Blood Urea Nitrogen 11 mg/dL (6-20); Calcium 8.9 mg/dL (8.5-10.5); Carbon Dioxide 25 mmol/L (22-29); Chloride 98 mmol/L (98-107); Glomerular Filtration Rate 81.6 mL/min (90-130); Glucose 136 mg/dL (65-115); Magnesium 1.5 mg/dL (1.7-2.3); Osmolality Calculated 274 mOsm/kg (285-295); Phosphorus 3.7 mg/dL (2.5-4.5); Sodium 133 mmol/L (136-145)
[2019-08-21 19:33] LABS: Anion Gap 14.4 (5-19); Potassium 4.4 mmol/L (3.5-5.1)
[2019-08-21 21:23] LABS: Glucose Point of Care 122 mg/dL (70-110)
[2019-08-22] VITALS: BP 133/82; PULSE 89; RESP 20; TEMP 37.3; O2SAT 93
[2019-08-22 04:00] VITALS: BP 138/91; PULSE 84; RESP 22; TEMP 37.8; O2SAT 94
[2019-08-22 04:44] LABS: Basophils # 0.1 10^3/uL (0.0-0.1); Basophils % 0.4 %; Eosinophils # 0.1 10^3/uL (0.0-0.8); Eosinophils % 0.5 %; Hemoglobin 14.7 g/dL (11.7-16.6); Lymphocytes # 2.1 10^3/uL (0.8-4.8); Lymphocytes % 13.7 %; Mean Corpuscular HGB Conc 33.4 g/dL (30.0-36.0); Mean Corpuscular Hemoglobin 34.9 pg (28.0-34.0); Mean Corpuscular Volume 104.5 fL (80-94); Mean Platelet Volume 10.2 fL (7.4-10.4); Monocytes # 1.3 10^3/uL (0.2-0.9); Monocytes % 8.7 %; Neutrophils # 11.42 10^3/uL (1.8-7.7); Neutrophils % 75.8 %; Nucleated Red Blood Cells % 0 %; Platelet Count 211 10^3/cmm (130-400); Red Blood Count 4.21 10^6/uL (4.1-5.3); Red Cell Distribution Width 12.5 % (12.1-15.1); White Blood Count 15.1 10^3/uL (4.0-10.0)
[2019-08-22 05:22] LABS: Alanine Aminotransferase 45 U/L (0-41); Albumin Level 3.3 g/dL (3.5-5.2); Alkaline Phosphatase 52 IU/L (40-130); Anion Gap 13.2 (5-19); Aspartate Amino Transferase 31 U/L (0-40); Blood Urea Nitrogen 12 mg/dL (6-20); Calcium 8.3 mg/dL (8.5-10.5); Carbon Dioxide 26 mmol/L (22-29); Chloride 98 mmol/L (98-107); Globulin 4.2 g/dL (1.3-4.6); Glomerular Filtration Rate 73.1 mL/min (90-130); Glucose 118 mg/dL (65-115); Osmolality Calculated 273 mOsm/kg (285-295); Potassium 4.2 mmol/L (3.5-5.1); Sodium 133 mmol/L (136-145); Total Protein 7.5 g/dL (6.6-8.7)
[2019-08-22 05:36] LABS: Lipase 234 U/L (13-60)
[2019-08-22] MEDS: sodium chloride 0.9% 1,000 ML 150 ML IV ×2 (06:29→20:17)
[2019-08-22 06:50] LABS: Glucose Point of Care 131 mg/dL (70-110)
[2019-08-22 07:32] VITALS: BP 143/93; PULSE 80; RESP 18; TEMP 37.2; O2SAT 95
[2019-08-22] MEDS: enoxaparin 40 mg/0.4 mL Syringe SUBCUT (08:44)
[2019-08-22] MEDS: fluticasone nasal spray 16gm Btl 2 SPRAY INTRANASAL (08:44)
[2019-08-22] MEDS: multivitamin therapeutic Tablet 1 TAB PO (08:46)
[2019-08-22] MEDS: pantoprazole DR 40 mg Tablet PO (08:46)
[2019-08-22] MEDS: folic acid 1 mg Tablet PO (08:46)
[2019-08-22] MEDS: sulfamethoxazole-trimeth DS 160-800 mg Tablet 1 TAB PO ×2 (08:46→17:15)
[2019-08-22] MEDS: metoprolol succinate ER (24 HR) 100 mg Tablet PO ×2 (08:46→17:15)
[2019-08-22] MEDS: sertraline 100 mg Tablet 200 MG PO (08:47)
[2019-08-22] MEDS: lisinopril 20 mg Tablet 40 MG PO (08:47)
[2019-08-22] MEDS: levETIRAcetam 500 mg Tablet 1000 MG PO ×2 (08:47→17:15)
[2019-08-22] MEDS: thiamine 100 mg Tablet PO (08:47)
[2019-08-22 10:39] LABS: Glucose Point of Care 117 mg/dL (70-110)
[2019-08-22 11:31] VITALS: BP 140/88; PULSE 76; RESP 18; TEMP 36.9; O2SAT 97
[2019-08-22 15:02] VITALS: BP 117/75; PULSE 73; RESP 18; TEMP 37.1; O2SAT 95
--- NOTE | 2019-08-22 15:57 | P.PN_ITS ---
Subjective Subjective: Interval history: overnight temperatire to 100.1F, leukocytosis trending down to 15, feels improved though sore, diet advanced to GI soft this morning. No vomiting Medications: Reviewed: Yes Vitals/I&O/Wt Last Vital Signs Temp 98.7 F 08/22/19 15:02 Pulse 73 08/22/19 15:02 Resp 18 08/22/19 15:02 BP 117/75 08/22/19 15:02 Pulse Ox 95 08/22/19 15:02 08/22/19 08/22/19 08/22/19 06:59 14:59 22:59 Intake Total 1400 / 3177.5 960 / 960 Output Total 320 / 1620 9 Balance 1080 / 1557.5 951 / 951 Weight last 48 hrs Weight 114.305 kg Physical Exam Narrative: EXAM NARRATIVE: GEN: Awake, alert and oriented, no acute distress CVS: S1S2 N RS: CTA B/L Abd: Soft, non distended, TTP in mid epigastric area LOAN REVIEW OFFICER: no focal neuro deficits Data : 08/22/19 04:02 08/22/19 04:02 Micro: Microbiology 08/21/19 01:30 Blood Culture - Preliminary Blood NEGATIVE TO DATE 08/21/19 01:30 Blood Culture - Preliminary Blood NEGATIVE TO DATE A&P Assessment and plan (1) Pancreatitis: Status: Acute Qualifiers: Acute pancreatitis complication: no infection or necrosis Chronicity: acute Pancreatitis type: alcohol induced Qualified Code(s): K85.20 - Alcohol induced acute pancreatitis without necrosis or infection (2) Daily consumption of alcohol: Status: Acute (3) Hypertension: Status: Chronic Qualifiers: Hypertension type: essential hypertension Qualified Code(s): I10 - Essential (primary) hypertension (4) Anxiety: Status: Chronic (5) Degenerative disc disease: Status: Chronic Qualifiers: Spinal region: unspecified cervical region Qualified Code(s): M50.30 - Other cervical disc degeneration, unspecified cervical region (6) Restless leg syndrome: Status: Chronic (7) Seizures: Status: Chronic (8) GERD (gastroesophageal reflux disease): Status: Chronic Qualifiers: Esophagitis presence: without esophagitis Qualified Code(s): K21.9 - Gastro-esophageal reflux disease without esophagitis (9) Seasonal allergies: Status: Chronic (10) Nicotine dependence, cigarettes, uncomplicated: Status: Chronic Additional A&P Information Acute pancreatitis likely 2/2 alcohol intake Clinically improving with advancing diet slowly, No further emesis Pain persisting but better , still sore Low grade fever overnight, more like to be inflammatory in nature. Blood cx negative to date Liver enzymes trending down Continue supportive management incl IV fluids, slowly advance diet , add toradol Given fevers overnight, need to monitor curve. If high grade fever or clinical worsening occur, will need f/up CT to assess for necrotizing pancreatitis Lovenox for DVT prophylaxis PPI Full code Attestations Medical Necessity Statement*: improving pancreatitis, low grade fever needs monitoring, discharge if tolerating po intake and afebrile ~24 hrs Coding Level of Care Code Acute Senior Vice President & General Counsel for g Fwd Diagnoses Pancreatitis K85.20 Acute pancreatitis complication: no infection or necrosis Chronicity: acute Pancreatitis type: alcohol induced Daily consumption of alcohol Z78.9 Hypertension I10 Hypertension type: essential hypertension Anxiety F41.9 Degenerative disc disease M50.30 Spinal region: unspecified cervical region Restless leg syndrome G25.81 Seizures R56.9 GERD (gastroesophageal reflux disease) K21.9 Esophagitis presence: without esophagitis Seasonal allergies J30.2 Nicotine dependence, cigarettes, uncomplicated F17.210
[2019-08-22 16:56] LABS: Glucose Point of Care 127 mg/dL (70-110)
[2019-08-22] MEDS: LORazepam 2 mg Tablet PO (17:16)
[2019-08-22 19:16] VITALS: BP 132/83; PULSE 74; RESP 18; TEMP 37.1; O2SAT 96
[2019-08-22] MEDS: ropinirole 1 mg Tablet PO (20:14)
[2019-08-22 21:02] LABS: Glucose Point of Care 131 mg/dL (70-110)
[2019-08-23] VITALS: BP 141/83; PULSE 79; RESP 20; TEMP 37.5; O2SAT 96
[2019-08-23] MEDS: sodium chloride 0.9% 1,000 ML 100 ML IV (01:49)
[2019-08-23 04:00] VITALS: BP 164/87; PULSE 70; RESP 20; TEMP 37.4; O2SAT 95
--- NOTE | 2019-08-23 06:49 | PC.NURSE ---
The day shift nurse told me this morning not to do blood sugar check. The day shift aid will be notified.
[2019-08-23 07:55] VITALS: BP 146/89; PULSE 70; RESP 14; TEMP 36.4; O2SAT 95
[2019-08-23] MEDS: enoxaparin 40 mg/0.4 mL Syringe SUBCUT (08:25)
[2019-08-23] MEDS: fluticasone nasal spray 16gm Btl 2 SPRAY INTRANASAL (08:25)
[2019-08-23] MEDS: lisinopril 20 mg Tablet 40 MG PO (08:26)
[2019-08-23] MEDS: levETIRAcetam 500 mg Tablet 1000 MG PO (08:26)
[2019-08-23] MEDS: folic acid 1 mg Tablet PO (08:27)
[2019-08-23] MEDS: thiamine 100 mg Tablet PO (08:27)
[2019-08-23] MEDS: sulfamethoxazole-trimeth DS 160-800 mg Tablet 1 TAB PO (08:27)
[2019-08-23] MEDS: pantoprazole DR 40 mg Tablet PO (08:27)
[2019-08-23] MEDS: sertraline 100 mg Tablet 200 MG PO (08:27)
[2019-08-23] MEDS: multivitamin therapeutic Tablet 1 TAB PO (08:27)
[2019-08-23] MEDS: metoprolol succinate ER (24 HR) 100 mg Tablet PO (08:27)
[2019-08-23 10:44] VITALS: BP 146/89; PULSE 70; RESP 14; TEMP 36.4; O2SAT 95
--- NOTE | 2019-08-23 16:22 | PM.DCS ---
Discharge Providers Date of Admission: 08/21/19 06:05 Date of Discharge: August 23, 2019 Attending Provider at Admission: Eleanor Calles MD Attending Provider at Discharge: Kaelyn Burks MD Diagnoses at Discharge Discharge Diagnosis (1) Pancreatitis: Status: Acute Qualifiers: Acute pancreatitis complication: no infection or necrosis Chronicity: acute Pancreatitis type: alcohol induced Qualified Code(s): K85.20 - Alcohol induced acute pancreatitis without necrosis or infection (2) Daily consumption of alcohol: Status: Acute (3) Hypertension: Status: Chronic Qualifiers: Hypertension type: essential hypertension Qualified Code(s): I10 - Essential (primary) hypertension (4) Anxiety: Status: Chronic (5) Degenerative disc disease: Status: Chronic Problem details: neck Qualifiers: Spinal region: unspecified cervical region Qualified Code(s): M50.30 - Other cervical disc degeneration, unspecified cervical region (6) Restless leg syndrome: Status: Chronic (7) Seizures: Status: Chronic Problem details: onset 2017, last 2018 (8) GERD (gastroesophageal reflux disease): Status: Chronic Qualifiers: Esophagitis presence: without esophagitis Qualified Code(s): K21.9 - Gastro-esophageal reflux disease without esophagitis (9) Seasonal allergies: Status: Chronic (10) Nicotine dependence, cigarettes, uncomplicated: Status: Chronic Reason for Visit Reason for Visit: abd pain; back pain Hospital Course Discharge Summary: Nelson Copeland is a 44 year old male who presented to the emergency room with chief complaint of abdominal pain that started shortly after binge drinking recently. He also had some loose stools and gastric reflux. On evaluation in the ER he was found to have a lipase greater than 1600, likely to be alcohol induced. He received supportive management with pain control, IV hydration, GI rest initially with slow advancement of diet. Patient regained his appetite on the day of discharge. He was eating GI soft diet and tolerating it very well. He felt well overall and was therefore discharged today. Of note he did have fever of 100.5 and then 99, likely related to inflammation from the pancreas. Complications noted otherwise and abdominal exam was significantly improved, therefore it was prudent for him to be discharged. He has been asked to monitor for recurrent signs of abdominal pain and/or fever greater than 101 Fahrenheit at that may correlate with complications of pancreatitis especially necrotizing pancreatitis. He is instructed to return to the ED should such symptoms present. Physical Exam Narrative: EXAM NARRATIVE: GEN: Awake, alert and oriented, no acute distress CVS: S1S2 N RS: CTA B/L Abd: Soft, nt/nd , bs+ DIRECTOR OF EDUCATION: no focal neuro deficits Discharge Data Data Completed and Pending: Completed Studies During Hospitalization Category Date Time Status CT abdomen pelvis w con* [id number] Stat Cat Scan 08/21/19 02:43 Completed US gall bladder 7 [id number] Urgent Ultrasound 08/21/19 02:31 Completed Pending at discharge Category Date Time Status Blood Culture Sta t Lab 08/21/19 01:30 Results Labs from last 24 hours 08/22/19 08/22/19 20:43 16:51 POC Glucose 131 127 Vitals: Last Vital Signs Temp 97.6 F 08/23/19 10:44 Pulse 70 08/23/19 10:44 Resp 14 08/23/19 10:44 BP 146/89 08/23/19 10:44 Pulse Ox 95 08/23/19 10:44 Discharge Plan Discharge Patient Disposition: Home, Self-Care Condition: Stable Prescriptions: New acetaminophen 500 mg Tablet 500 mg PO Q6H PRN (Reason: Mild Pain Or Increase Temp) Qty: 0 RF: 0 folic acid 1 mg Tablet 1 mg PO DAILY 30 Days RF: 0 Vitamin B-1 (mononitrate) 100 mg Tablet 100 mg PO DAILY Qty: 0 RF: 0 Thera 400 mcg Tablet 1 tab PO DAILY 30 Days RF: 0 Continued cyclobenzaprine 10 mg tablet 10 mg PO TID PRN (Reason: Muscle Pain) RF: 0 ropinirole 1 mg tablet 1 mg PO BEDTIME RF: 0 alprazolam 1 mg tablet 0.5 - 1 mg PO DAILY PRN (Reason: Anxiety) RF: 0 metoprolol succinate 100 mg tablet extended release 24 hr 100 mg PO BID RF: 0 sertraline 100 mg tablet 200 mg PO DAILY RF: 0 omeprazole 20 mg capsule,delayed release(DR/EC) 20 mg PO BID RF: 0 mupirocin 2 % ointment 1 applic TOPICAL BID RF: 0 lisinopril 40 mg tablet 40 mg PO DAILY RF: 0 Flonase Allergy Relief 50 mcg/actuation [place],Suspension 2 spray INTRANASAL DAILY RF: 0 levetiracetam 1,000 mg tablet 1,000 mg PO BID RF: 0 Discontinued sulfamethoxazole-trimethoprim 800-160 mg tablet 1 tab PO BID RF: 0 Discharge Orders: Discharge Order (Routine); Ordered 08/23/19 Ordered By: Kealyn Burks Referrals: primary care,provider [Other] Galeano,RICA Cramer [Referring] - (Call and make an appointment to be seen within the next 7 to 10 days for a follow up.) Discharge Diet: Advance as tolerated Discharge Activity: Resume usual activity Patient Instructions: Metoprolol (By mouth), Acetaminophen (By mouth), Thiamine (Vitamin B-1) (By mouth), Folic Acid (By mouth), Hypertension, Pancreatitis (DC) Discharge Date/Time: 08/23/19 10:50 Discharge Attestations Time Spent in Discharge Care*: less than 30 min Quality Metrics Clinical Quality Measures During this hospital stay, did patient experience: None Coding Level of Care Code Acute Residential Recycle Driver for Evelyng Fwd Diagnoses Pancreatitis K85.20 Acute pancreatitis complication: no infection or necrosis Chronicity: acute Pancreatitis type: alcohol induced Daily consumption of alcohol Z78.9 Hypertension I10 Hypertension type: essential hypertension Anxiety F41.9 Degenerative disc disease M50.30 Spinal region: unspecified cervical region Restless leg syndrome G25.81 Seizures R56.9 GERD (gastroesophageal reflux disease) K21.9 Esophagitis presence: without esophagitis Seasonal allergies J30.2 Nicotine dependence, cigarettes, uncomplicated F17.210
== END 2019-08-23 10:50 | disposition home or self-care (01) | DRG 440 ==
LOC: ER 05:42 → MEDSURG 06:26
PROVIDERS: Emergency Medicine; Physician Assistant; Admitting Provider Hospitalist; Visit Provider Student in an Organized Health Care Education/Training Program
DX: K85.20 Alcohol induced acute pancreatitis without necrosis or infection (principal); I10 Essential (primary) hypertension; F10.229 Alcohol dependence with intoxication, unspecified; F41.9 Anxiety disorder, unspecified; M50.30 Other cervical disc degeneration, unspecified cervical region; G25.81 Restless legs syndrome; R56.9 Unspecified convulsions; K21.9 Gastro-esophageal reflux disease without esophagitis; F17.210 Nicotine dependence, cigarettes, uncomplicated; J30.2 Other seasonal allergic rhinitis; Y90.0 Blood alcohol level of less than 20 mg/100 ml
CPT/HCPCS: 12345; 36415; 36416; 74177; 76700; 76705; 80048; 80053; 80061; 80307; 81001; 82962; 83036; 83690; 83735; 84100; 84478; 85025; 85610; 85730; 87040; 96372; 96375; 99282; C9113; J1170; J1650; J1815; J2270; J2405; J3411; J7030; Q9967

== ENCOUNTER 2022-04-02 04:08 | Observation (INO) | payer MEDICARE, MEDICAID, SELFPAY ==
[2022-04-02] VITALS (13 sets, daily range): BP systolic 161–190; BP diastolic 88–119; PULSE 62–79; RESP 16–18; TEMP 36.7–37; O2SAT 94–98; BMI 35.2
--- NOTE | 2022-04-02 04:11 | CTR_ITS ---
PROCEDURE INFORMATION: Exam: CT Abdomen And Pelvis With Contrast Exam date and time: 04/02/2022 4:27 AM Age: 47 years old Clinical indication: Generalized; Prior surgery; Surgery date: 6+ months; Surgery type: Cholecystectomy; Patient HX: PT here from home by EMS for eval of abdominal pain and flank pain that began yesterday and worsened throughout the day. PT also reports diarrhea for the past 3-4 days. ; Additional info: Abd pain TECHNIQUE: Imaging protocol: Computed tomography of the abdomen and pelvis with contrast. Radiation optimization: All CT scans at this facility use at least one of these dose optimization techniques: automated exposure control; mA and/or kV adjustment per patient size (includes targeted exams where dose is matched to clinical indication); or iterative reconstruction. Contrast material: OMNI 350; Contrast volume: 100 ml; Contrast route: INTRAVENOUS (IV); Other protocol: This patient has received 0 known CTs and 0 known cardiac nuclear medicine studies in the 12 months prior to the current study. COMPARISON: CT abdomen pelvis w con* [id number] 08/21/2019 4:05 AM RADIATION DOSE METRICS: Total DLP (mGy-cm): 1052.45 FINDINGS: Liver: Hepatic steatosis. Gallbladder and bile ducts: Cholecystectomy. Pancreas: There is edema involving the pancreas and within the anterior perirenal space, consistent with acute interstitial pancreatitis. No drainable fluid collections are seen. Spleen: Normal. No splenomegaly. Adrenal glands: Normal. No mass. Kidneys and ureters: Normal. No hydronephrosis. Stomach and bowel: Colonic diverticulosis without evidence of diverticulitis. No bowel obstruction. Appendix: No evidence of appendicitis. Intraperitoneal space: Unremarkable. No free air. No significant fluid collection. Vasculature: Unremarkable. No abdominal aortic aneurysm. Lymph nodes: Unremarkable. No enlarged lymph nodes. Urinary bladder: Unremarkable as visualized. Reproductive: Unremarkable as visualized. Bones/joints: Unremarkable. No acute fracture. Soft tissues: Unremarkable. CT/CT abdomen pelvis w con* [id number] IMPRESSION: Acute interstitial pancreatitis. No drainable fluid collections.
--- NOTE | 2022-04-02 04:12 | ED_ITS ---
HPI - Abdominal Pain General: Chief Complaint: Abdominal Pain Stated Complaint: abd pain, back pain Time Seen by Provider: 04/02/22 04:08 Source: patient Mode of arrival: ambulatory Limitations: no limitations History of Present Illness: 47-year-old male who has had a history of pancreatitis in the past he states he has been having epigastric abdominal pain since yesterday states the pain was much worse at 2 AM she states the pain is currently 5 out of 10 after receiving pain meds in route. He denies any vomiting has had nausea has had some diarrhea as well. He has had a cholecystectomy in the past. Associated Symptoms: Reports nausea; Denies chills, dysuria and fever(s) Review of Systems Const: Denies: fever(s), chills, body aches or change in appetite Eyes: Denies: blurry vision or eye discomfort ENMT: Denies: throat pain or dental pain Card: Denies: chest pain Resp: Denies: dyspnea GI: Reports: abdominal pain and nausea : Denies: dysuria Musc: Denies: neck pain or back pain Skin/Breast: Denies: rash Neuro: Denies: headache(s) Psych: Denies: depression Mitch/Lymph: Denies: easy bruising All/Imm: Denies: urticaria PFSH ED PFSH: Medical History Anxiety Degenerative disc disease neck GERD (gastroesophageal reflux disease) Hypertension Restless leg syndrome Seizures onset 2017, last 2018 Surgical History No pertinent past surgical history Family History Other CAD (coronary artery disease) Diabetes Hypertension Denies family history of Pancreatitis Social History Smoking and tobacco status: current every day smoker cigarettes Alcohol intake: current Alcohol type: beer Household members: other Details: 12 year old son Physical Exam Const: COMMON NORMALS: no acute distress, patient oriented x3 and healthy appearing HENMT: COMMON NORMALS: normocephalic and atraumatic HEAD & SCALP: normocephalic and atraumatic Eye: COMMON NORMALS: Equal, round and reactive pupils present and EOMs intact bilaterally PUPIL: Yes Equal, round and reactive pupils present Neck/C-Spine: COMMON NORMALS: full ROM and supple Chest: COMMONS NORMALS: normal inspection of the chest and normal palpation of entire chest wall Resp: COMMON NORMALS: normal respiratory effort, No retractions, No use of accessory muscles and clear to auscultation bilaterally AUSCULTATION: clear to auscultation bilaterally Cardio: COMMON NORMALS: regular rate, regular rhythm and No murmurs present (Cardio) RATE: regular rate RHYTHM: regular rhythm GI: COMMON NORMALS: Normal to inspection, nondistended, normoactive bowel sounds present, Soft to palpation and no masses PALPATION: Yes Soft to palpation OTHER: epigastric tenderness Extremity: COMMON NORMALS: normal to inspection and full ROM Neuro: COMMON NORMALS: patient oriented x3, moves all extremities and no focal motor deficits Psych: COMMON NORMALS: mental status grossly normal, Normal thought process present and cooperative THOUGHT PROCESS: Normal thought process present Skin: COMMON NORMALS: no rashes or lesions noted and no wounds GENERAL SKIN EXAM: no rashes or lesions noted Course Vital Signs: Vital signs: Vital Signs Temperature 98.4 F 04/02/22 04:10 Pulse Rate 79 04/02/22 04:10 Respiratory Rate 16 04/02/22 04:20 Blood Pressure 179/105 04/02/22 04:10 Pulse Oximetry 95 04/02/22 04:10 Oxygen Delivery Me thod 04/02/22 04:10 MDM - Abdominal Pain Medical Decision Making Patient presents with abdominal pain he does have an elevated lipase and pancreatitis seen on CT scan spoke to hospitalist will admit this time. Lab Data 04/02/22 04:13 04/02/22 04:13 Labs/Radiology: Radiology Impressions Abdomen/Pelvis CT 04/02/22 04:11 IMPRESSION: Acute interstitial pancreatitis. No drainable fluid collections. Laboratory Results WBC 13.9 10^3/uL (4.0-10.0) H 04/02/22 04:13 RBC 4.43 10^6/uL (4.1-5.3) 04/02/22 04:13 Hgb 15.4 g/dL (11.7-16.6) 04/02/22 04:13 Hct 45.6 % (42.0-52.0) 04/02/22 04:13 MCV 102.9 fl (80-94) H 04/02/22 04:13 MCH 34.8 pg (28.0-34.0) H 04/02/22 04:13 MCHC 33.8 g/dL (30.0-36.0) 04/02/22 04:13 RDW 13.2 % (12.1-15.1) 04/02/22 04:13 Plt Count 208 10^3/cmm (130-400) 04/02/22 04:13 MPV 10.4 fL (7.4-10.4) 04/02/22 04:13 Neut % (Auto) 80.8 % 04/02/22 04:13 Lymph % (Auto) 10.5 % 04/02/22 04:13 [place] % (Auto) 7.5 % 04/02/22 04:13 Eos % (Auto) 0.2 % 04/02/22 04:13 Baso % (Auto) 0.4 % 04/02/22 04:13 Neut # (Auto) 11.25 10^3/uL (1.8-7.7) H 04/02/22 04:13 Lymph # (Auto) 1.5 10^3/uL (0.8-4.8) 04/02/22 04:13 [place] # (Auto) 1.0 10^3/uL (0.2-0.9) H 04/02/22 04:13 Eos # (Auto) 0.0 10^3/uL (0.0-0.8) 04/02/22 04:13 Baso # (Auto) 0.1 10^3/uL (0.0-0.1) 04/02/22 04:13 Nucleated RBC % (auto) 0 % 04/02/22 04:13 Nucleated RBCs # 0.0 /100WBC 04/02/22 04:13 Sodium 131 mmol/L (136-145) L 04/02/22 04:13 Potassium 3.8 mmol/L (3.5-5.1) 04/02/22 04:13 Chloride 93 mmol/L (98-107) L 04/02/22 04:13 Carbon Dioxide 23 mmol/L (22-29) 04/02/22 04:13 Anion Gap 18.8 (5-19) 04/02/22 04:13 BUN 5 mg/dL (6-20) L 04/02/22 04:13 Creatinine 0.9 mg/dL (0.7-1.2) 04/02/22 04:13 GFR Calculation 90.8 mL/min (90-130) 04/02/22 04:13 Glucose 176 mg/dL (65-115) H 04/02/22 04:13 Calculated Osmolality 274 mOsm/kg (285-295) L 04/02/22 04:13 Calcium 8.3 mg/dL (8.5-10.5) L 04/02/22 04:13 Total Bilirubin 0.8 mg/dL (0.15-1.2) 04/02/22 04:13 AST 123 U/L (0-40) H 04/02/22 04:13 ALT 76 U/L (0-41) H 04/02/22 04:13 Alkaline Phosphatase 82 U/L (40-130) 04/02/22 04:13 Total Protein 7.5 g/dL (6.6-8.7) 04/02/22 04:13 Albumin 3.5 g/dL (3.5-5.2) 04/02/22 04:13 Globulin 4.0 g/dL (1.3-4.6) 04/02/22 04:13 Lipase 1380 U/L (13-60) H 04/02/22 04:13 Ethyl Alcohol < 10 mg/dL (0-10) 04/02/22 04:13 Discharge Plan Discharge Condition: Stable Prescriptions: No Action cyclobenzaprine 10 mg tablet 10 mg PO TID PRN (Reason: Muscle Pain) ropinirole 1 mg tablet 1 mg PO BEDTIME alprazolam 1 mg tablet 0.5 - 1 mg PO DAILY PRN (Reason: Anxiety) metoprolol succinate 100 mg tablet extended release 24 hr 100 mg PO BID sertraline 100 mg tablet 200 mg PO DAILY omeprazole 20 mg capsule,delayed release(DR/EC) 20 mg PO BID mupirocin 2 % ointment 1 applic TOPICAL BID lisinopril 40 mg tablet 40 mg PO DAILY Flonase Allergy Relief 50 mcg/actuation [place],Suspension 2 spray INTRANASAL DAILY levetiracetam 1,000 mg tablet 1,000 mg PO BID acetaminophen 500 mg Tablet 500 mg PO Q6H PRN (Reason: Mild Pain Or Increase Temp) Qty: 0 0RF Vitamin B-1 (mononitrate) 100 mg Tablet 100 mg PO DAILY Qty: 0 0RF Coding Level of Care Code ED [employer] Manager for Siva Stoddard
[2022-04-02] MEDS: iohexol 350 mg/mL 500 mL Btl (per mL) IV (04:20)
[2022-04-02] MEDS: HYDROmorphone 1 mg/mL INJ 1 mL 0.5 MG IVP (04:20)
[2022-04-02 04:23] LABS: Basophils # 0.1 10^3/uL (0.0-0.1); Basophils % 0.4 %; Eosinophils % 0.2 %; Hematocrit 45.6 % (42.0-52.0); Hemoglobin 15.4 g/dL (11.7-16.6); Lymphocytes # 1.5 10^3/uL (0.8-4.8); Lymphocytes % 10.5 %; Mean Corpuscular HGB Conc 33.8 g/dL (30.0-36.0); Mean Corpuscular Hemoglobin 34.8 pg (28.0-34.0); Mean Corpuscular Volume 102.9 fl (80-94); Mean Platelet Volume 10.4 fL (7.4-10.4); Monocytes % 7.5 %; Neutrophils # 11.25 10^3/uL (1.8-7.7); Neutrophils % 80.8 %; Nucleated Red Blood Cells % 0 %; Platelet Count 208 10^3/cmm (130-400); Red Blood Count 4.43 10^6/uL (4.1-5.3); Red Cell Distribution Width 13.2 % (12.1-15.1); White Blood Count 13.9 10^3/uL (4.0-10.0)
[2022-04-02] MEDS: sodium chloride 0.9% 1,000 ML 999 ML IV (04:29)
[2022-04-02] MEDS: ondansetron 2 mg/ML SDV 2 mL 4 MG IVP (04:29)
[2022-04-02 04:40] LABS: Alanine Aminotransferase 76 U/L (0-41); Albumin Level 3.5 g/dL (3.5-5.2); Alkaline Phosphatase 82 U/L (40-130); Aspartate Amino Transferase 123 U/L (0-40); Blood Urea Nitrogen 5 mg/dL (6-20); Calcium 8.3 mg/dL (8.5-10.5); Carbon Dioxide 23 mmol/L (22-29); Chloride 93 mmol/L (98-107); Glomerular Filtration Rate 90.8 mL/min (90-130); Glucose 176 mg/dL (65-115); Osmolality Calculated 274 mOsm/kg (285-295); Sodium 131 mmol/L (136-145); Total Bilirubin 0.8 mg/dL (0.15-1.2); Total Protein 7.5 g/dL (6.6-8.7)
[2022-04-02 04:44] LABS: Alcohol Level < 10 mg/dL (0-10); Anion Gap 18.8 (5-19)
[2022-04-02 04:45] LABS: Potassium 3.8 mmol/L (3.5-5.1)
[2022-04-02 04:51] LABS: Lipase 1380 U/L (13-60)
[2022-04-02 05:14] LABS: Triglycerides 196 mg/dL (0-150)
--- NOTE | 2022-04-02 05:32 | PM.HP ---
Providers/Chief Complaint Admitting Physician: Omega Mckenzie MD Chief Complaint: abd pain, back pain History of Present Illness Nelson Copeland is a 47 year old male presenting from home with 1 day history of abdominal pain, epigastric, associated with vomiting and some loose stools. This started yesterday and seem to worsen. He could not get pain under control despite taking some Tylenol with codeine at home. He has had a past history of pancreatitis and it was similar so he came into the hospital. No blood in the stool, black or tarry stools, hematemesis, fever. He reports he does drink alcohol. Review of Systems General: Reports: 10 or more systems reviewed and unremarkable except in HPI and below Const: Denies: fever(s) or chills Eyes: Denies: change in vision ENMT: Denies: throat pain Card: Denies: chest pain Resp: Denies: dyspnea GI: Reports: abdominal pain, nausea and vomiting; Denies: hematemesis, hematochezia or melena Musc: Reports: joint pain Skin/Breast: Denies: rash Psych: Reports: anxiety Medications/Allergies Home Medications Medication Instructions Recorded Confirmed Last Taken Type alprazolam 1 mg tablet 0.5 - 1 mg PO DAILY PRN Anxiety 08/21/19 08/21/19 Unknown History cyclobenzaprine 10 mg tablet 10 mg PO TID PRN Muscle Pain 08/21/19 08/21/19 Unknown History fluticasone propionate 50 2 spray intranasal DAILY 08/21/19 08/21/19 08/20/19 13:00 History mcg/actuation nasal spray,suspension (Flonase Allergy Relief) levetiracetam 1,000 mg tablet 1,000 mg PO BID 08/21/19 08/21/19 08/20/19 13:00 History lisinopril 40 mg tablet 40 mg PO DAILY 08/21/19 08/21/19 08/20/19 13:00 History metoprolol succinate 100 mg 100 mg PO BID 08/21/19 08/21/19 08/20/19 13:00 History tablet,extended release 24 hr mupirocin 2 % topical ointment 1 applic topical BID 08/21/19 08/21/19 08/20/19 13:00 History omeprazole 20 mg capsule,delayed 20 mg PO BID 07/11/3008/21/19 08/20/19 13:00 History release ropinirole 1 mg tablet 1 mg PO BEDTIME 08/21/19 08/21/19 08/20/19 13:00 History sertraline 100 mg tablet 200 mg PO DAILY 08/21/19 08/21/19 08/20/19 13:00 History acetaminophen 500 mg tablet 500 mg PO Q6H PRN Mild Pain Or 08/23/19 Unknown Rx Increase Temp #0 tabs thiamine mononitrate (vit B1) 100 100 mg PO DAILY #0 tabs 08/23/19 Unknown Rx mg tablet (Vitamin B-1 (mononitrate)) Allergies Allergy/AdvReac Type Severity Reaction Status Date / Time No Known Allergies Allergy Verified 08/21/19 05:34 PFSH Acute PFSH: Medical History (Updated 04/02/22 @ 05:38 by Omega Mckenzie MD) Anxiety Degenerative disc disease neck Depression with anxiety Diabetes mellitus GERD (gastroesophageal reflux disease) Hypertension Restless leg syndrome Seizures onset 2017, last 2018 Surgical History (Updated 04/02/22 @ 05:35 by Omega Mckenzie MD) History of cholecystectomy History of neck surgery No pertinent past surgical history Family History Other CAD (coronary artery disease) Diabetes Hypertension Denies family history of Pancreatitis Social History Smoking and tobacco status: current every day smoker cigarettes Alcohol intake: current Alcohol type: beer Household members: other Details: 12 year old son Vitals/I&O/Wt Last Vital Signs Temp 98.4 F 04/02/22 04:10 Pulse 68 04/02/22 05:14 Resp 16 04/02/22 05:14 BP 161/88 04/02/22 05:14 Pulse Ox 95 04/02/22 05:14 O2 Del Method 04/02/22 04:10 Weight last 48 hrs Weight 111.13 kg Physical Exam Narrative: General exam is a white male, reporting improvement in his pain after pain medication, again no current distress. HEENT: Atraumatic and normocephalic. Pupils equally round. Oropharynx clear. Neck is supple no lymphadenopathy or thyromegaly Cardiovascular regular rate and rhythm without murmur Lungs clear no wheezing or crackles Abdomen is soft with positive bowel sounds. Tenderness is present in the epigastric area. No obvious organomegaly exam is deferred Extremities no sinus clubbing or edema, cap refill brisk Skin no rash Neuro no obvious focal deficits Data 04/02/22 04:13 04/02/22 04:13 Other Labs: Liver function test demonstrated an AST of 123, ALT of 76. Bilirubin and alk phos are normal. Albumin 3.5. Calcium 8.3. Triglycerides 196 Lipase 1380 Urinalysis pending Alcohol level less than 10 CT abdomen and pelvis which I reviewed and agree that this demonstrates acute pancreatitis with inflammation in the pancreatic region. No obvious pseudocyst is present A&P Assessment and plan (1) Acute pancreatitis: Patient presents with acute pancreatitis Triglyceride level is not significantly elevated Most likely etiology is alcohol Initiate clear liquids Pain control Closely monitor for improvement, other complications CBC CMP for tomorrow to monitor for any electrolyte abnormalities occurring with pancreatitis When medicine reconciliation is done, review medications for possible causes of pancreatitis as well (2) Hyponatremia: Likely secondary to acute illness (3) Macrocytosis: Check TSH Cannot rule out alcohol been etiology (4) Transaminitis: Check hepatitis panel Repeat tomorrow (5) Diabetes mellitus: Sliding scale insulin (6) Seizures: Continue Keppra (7) Hypertension: Discontinue lisinopril. Initiate amlodipine 10 mg daily. Lisinopril has a small risk of pancreatitis Qualifiers: Hypertension type: essential hypertension Qualified Code(s): I10 - Essential (primary) hypertension Plan Multiple other medical problems as outlined in past medical history Full code Lovenox for DVT prophylaxis Attestations Medical Necessity Statement*: Will require greater than 2 midnight stay for evaluation and treatment of acute pancreatitis Diagnoses Acute pancreatitis K85.90 Hyponatremia E87.1 Macrocytosis D75.89 Transaminitis R74.01 Diabetes mellitus E11.9 Seizures R56.9 Hypertension I10 Hypertension type: essential hypertension Time Spent (min) 39
[2022-04-02 05:47] LABS: Add Urine Microscopic? YES; Bilirubin Urine Neg (Negative); Blood Urine 2+ (Negative); Glucose Urine UA Norm (Normal); Ketones Urine Negative (Negative); Leukocyte Esterase Urine Negative (Negative); Nitrate Urine Negative (Negative); Protein Urine 1+ (Negative); Urine Appearance Clear (CLEAR); Urine Color Yellow (Yellow); Urobilinogen Urine Neg (Negative); pH Urine 6.5 (5-7)
[2022-04-02 05:49] LABS: Add Urine Culture? No; Hyaline Casts Urine 0-4 /lpf; Mucus Urine TRACE /hpf; RBC Urine 0-4 /hpf (0-2); Squamous Epithelial Cell Urine 0-4 /hpf (0-5); WBC Urine 0-4 /hpf (0-5)
[2022-04-02] MEDS: pantoprazole 40 mg SDV IVP ×2 (05:56→17:21)
[2022-04-02] MEDS: levETIRAcetam 500 mg Tablet 1000 MG PO ×2 (07:33→17:21)
[2022-04-02] MEDS: amlodipine 10 mg Tablet PO (07:34)
[2022-04-02] MEDS: metoprolol tartrate 50 mg Tablet 100 MG PO ×2 (07:34→20:32)
[2022-04-02] MEDS: morphine 4 mg/mL SDV 1 mL IVP ×2 (07:34→13:51)
[2022-04-02 07:40] LABS: Hepatitis A Antibody IgM Non-Reactive (Nonreactive); Hepatitis B Core IgM Non-Reactive (Nonreactive); Hepatitis B Surface Antigen Non-Reactive (Nonreactive); Hepatitis C Virus Antibody Non-Reactive (Nonreactive)
[2022-04-02 08:06] LABS: Glucose Point of Care 142 mg/dL (70-110)
--- NOTE | 2022-04-02 08:10 | PC.PHAR ---
pt states he takes care of his own medications-pt states he hasnt taken gabapentin 300mg bid for months ext med history shows last filled 03/26/22 30d/s pt states the pharmacy just has on auto refill-
[2022-04-02] MEDS: ALPRAZolam 0.5 mg Tablet PO ×2 (10:06→16:06)
[2022-04-02] MEDS: oxyCODONE 5 mg IR Tab/Cap PO ×3 (10:06→22:05)
[2022-04-02 11:18] LABS: Glucose Point of Care 133 mg/dL (70-110)
[2022-04-02] MEDS: cyclobenzaprine 10 mg Tablet PO ×2 (13:51→22:05)
[2022-04-02] MEDS: hyDRALAzine 20 mg/mL INJ 1 mL 10 MG IVP (16:05)
[2022-04-02 16:28] LABS: Glucose Point of Care 163 mg/dL (70-110)
[2022-04-02] MEDS: insulin lispro 100 unit/1 mL SUBCUT ×2 (17:21→22:04)
[2022-04-02] MEDS: amlodipine 5 mg Tablet PO (18:21)
[2022-04-02] MEDS: ropinirole 1 mg Tablet PO (20:32)
[2022-04-02 21:36] LABS: Glucose Point of Care 152 mg/dL (70-110)
[2022-04-03] VITALS (8 sets, daily range): BP systolic 155–191; BP diastolic 96–113; PULSE 74–76; RESP 14–17; TEMP 37.2–37.7; O2SAT 93–95
[2022-04-03] MEDS: hyDRALAzine 20 mg/mL INJ 1 mL 10 MG IVP (03:36)
[2022-04-03] MEDS: oxyCODONE 5 mg IR Tab/Cap PO (04:05)
[2022-04-03 04:10] LABS: Basophils # 0.1 10^3/uL (0.0-0.1); Basophils % 0.7 %; Eosinophils # 0.1 10^3/uL (0.0-0.8); Eosinophils % 0.5 %; Hematocrit 44.6 % (42.0-52.0); Hemoglobin 15.4 g/dL (11.7-16.6); Lymphocytes # 1.9 10^3/uL (0.8-4.8); Lymphocytes % 15.3 %; Mean Corpuscular HGB Conc 34.5 g/dL (30.0-36.0); Mean Corpuscular Volume 104.2 fl (80-94); Mean Platelet Volume 10.4 fL (7.4-10.4); Monocytes % 8.3 %; Neutrophils # 9.03 10^3/uL (1.8-7.7); Neutrophils % 74.5 %; Nucleated Red Blood Cells % 0 %; Platelet Count 181 10^3/cmm (130-400); Red Blood Count 4.28 10^6/uL (4.1-5.3); Red Cell Distribution Width 13.6 % (12.1-15.1); White Blood Count 12.1 10^3/uL (4.0-10.0)
[2022-04-03 04:35] LABS: Alanine Aminotransferase 62 U/L (0-41); Albumin Level 3.5 g/dL (3.5-5.2); Alkaline Phosphatase 75 U/L (40-130); Anion Gap 17.6 (5-19); Aspartate Amino Transferase 102 U/L (0-40); Blood Urea Nitrogen 4 mg/dL (6-20); Calcium 8.1 mg/dL (8.5-10.5); Carbon Dioxide 27 mmol/L (22-29); Chloride 95 mmol/L (98-107); Globulin 3.9 g/dL (1.3-4.6); Glomerular Filtration Rate 80.4 mL/min (90-130); Glucose 131 mg/dL (65-115); Magnesium 1.3 mg/dL (1.7-2.3); Osmolality Calculated 281 mOsm/kg (285-295); Potassium 3.6 mmol/L (3.5-5.1); Sodium 136 mmol/L (136-145); Total Protein 7.4 g/dL (6.6-8.7)
[2022-04-03] MEDS: cetirizine 10 mg Tablet PO (05:11)
[2022-04-03] MEDS: pantoprazole 40 mg SDV IVP (05:11)
[2022-04-03] MEDS: sertraline 100 mg Tablet 200 MG PO (05:11)
[2022-04-03] MEDS: LORazepam 2 mg Tablet PO (05:16)
[2022-04-03 06:36] LABS: Glucose Point of Care 123 mg/dL (70-110)
--- NOTE | 2022-04-03 07:58 | PM.PN ---
Subjective Subjective: He reports he is feeling a little bit better this morning. Less abdominal pain. No nausea. He would like his diet advanced. In the evening, he was having some significant hypertension, sweating, and symptoms of alcohol withdrawal. CIWA protocol was instituted. He feels a little bit better this morning. Medications: Reviewed: Yes Vitals/I&O/Wt Last Vital Signs Temp 99 F 04/03/22 07:45 Pulse 76 04/03/22 07:45 Resp 14 04/03/22 07:45 BP 163/101 04/03/22 07:45 Pulse Ox 93 04/03/22 07:45 O2 Del Method 04/02/22 16:00 04/02/22 04/03/22 04/03/22 22:59 06:59 14:59 Intake Total 1080 / 1560 Output Total 650 / 1600 / 2024 Balance 430 / -40 -425 / -465 Weight last 48 hrs Weight 111.13 kg Physical Exam Narrative: General exam no distress Neck is supple no lymphadenopathy or thyromegaly Cardiovascular regular rate and rhythm without murmur Lungs clear no wheezing or crackles Abdomen is soft with positive bowel sounds. Tenderness much improved, epigastric area exam is deferred Extremities no sinus clubbing or edema, cap refill brisk Skin no rash Neuro no obvious focal deficits Data 04/03/22 03:29 04/03/22 03:29 A&P Assessment and plan (1) Acute pancreatitis: Patient presents with acute pancreatitis Triglyceride level is not significantly elevated Most likely etiology is alcohol He seems to be clinically improving. Increase to full liquids now, hopefully bland diet by this afternoon Continue pain control Closely monitor for improvement, other complications Repeat CBC, CMP tomorrow (2) Hyponatremia: Likely secondary to acute illness. Resolved (3) Macrocytosis: TSH was normal Cannot rule out alcohol been etiology (4) Transaminitis: Hepatitis panel negative LFTs improving (5) Diabetes mellitus: Sliding scale insulin (6) Seizures: Continue Keppra. Patient reports no seizures in the last several years (7) Hypertension: Discontinue lisinopril. Continue amlodipine 10 mg daily. Lisinopril has a small risk of pancreatitis. Hydralazine for blood pressure as needed Qualifiers: Hypertension type: essential hypertension Qualified Code(s): I10 - Essential (primary) hypertension Plan Symptoms of alcohol withdrawal yesterday. CIWA protocol initialized. Continue close monitoring. Heart rate likely not elevated secondary to large doses of metoprolol that he takes for blood pressure control Multiple other medical problems as outlined in past medical history Full code Lovenox for DVT prophylaxis Possible discharge tomorrow if continues to improve from pancreatitis, diet advanced, alcohol withdrawal wanes Attestations Medical Necessity Statement*: Needs continued hospitalization for alcohol withdrawal, acute pancreatitis with pain control, treatment of withdrawal symptoms in this patient with underlying seizure disorder. Coding Level of Care Code Acute Code for [facility] Diagnoses Acute pancreatitis K85.90 Hyponatremia E87.1 Macrocytosis D75.89 Transaminitis R74.01 Diabetes mellitus E11.9 Seizures R56.9 Hypertension I10 Hypertension type: essential hypertension
[2022-04-03] MEDS: amlodipine 10 mg Tablet PO (08:31)
[2022-04-03] MEDS: levETIRAcetam 500 mg Tablet 1000 MG PO (08:31)
[2022-04-03] MEDS: folic acid 1 mg Tablet PO (08:32)
[2022-04-03] MEDS: magnesium sulfate premix 2 GM/50 ML PIGGYBACK IV (09:00)
[2022-04-03] MEDS: metoprolol tartrate 50 mg Tablet 100 MG PO (09:32)
[2022-04-03] MEDS: multivitamin therapeutic Tablet 1 TAB PO (09:32)
[2022-04-03 11:42] LABS: Glucose Point of Care 150 mg/dL (70-110)
--- NOTE | 2022-04-03 11:47 | PC.CHAP ---
Pastoral Care Encounter/Spiritual Assessment Type of Contact [] Declined body shop floorperson visit [] Patient/Family/Request visit [] Outpatient visit [] Follow-up visit [] Physician referral [] Code/Alert [x] Routine visit [] Staff referral [] Actively dying [] Patient sleeping [x] Family support [] [] Out of room [] Palliative care [] [] Receiving care in room [] Pre-surgical visit [] Trauma [] Long length of stay [] ICU visit [] Other: Relational/Emotional Strength [x] Patient feels connected with others/family/visitors/staff [] Distress [] Loneliness/isolation [] Abandonment Spirituality of Patient [x] Person of Madisyn [] Attends Tenriism of their Madisyn [x] Believes in Prayer [] Reads Bible or Lutheran materials [] There are Spiritual issues to be addressed Plastic Tile Layer Interventions [x] Prayer x] Active listening [] Non-anxious presence [] Spiritual/emotional support [] Crisis/trauma care [] Spiritual counseling [] Bereavement support [] Provided bereavement packet [] Provided Bible/devotional materials [] Provided toy/stuffed animal, coloring book to patient or family member [] Provided Communion [] Anointing/[place] [] Salvation [x] Completed spiritual assessment [] Other: Impact on Illness or Injury [] Angry [] Fearful [] Anxious [] Often cries [] Exhaustion [] Unable to work [] Unable to attend buddhist [] Unable to walk/stand [] Unable to read [] Unable to drive [] Unable to eat/drink [] Unable to sleep [] Unable to be with family [] Patient intubated [] Other: Summary Time spent with patient 10 min
[2022-04-03] MEDS: insulin lispro 100 unit/1 mL SUBCUT (12:37)
--- NOTE | 2022-04-03 14:28 | PM.DCS ---
Discharge Providers Date of Admission: 04/02/22 05:13 Date of Discharge: April 03, 2022 Attending Provider at Admission: Omega Mckenzie MD Attending Provider at Discharge: Omega Mckenzie MD Diagnoses at Discharge Discharge Diagnosis (1) Acute pancreatitis: Status: Acute (2) Hyponatremia: Status: Acute (3) Macrocytosis: Status: Acute (4) Transaminitis: Status: Acute (5) Diabetes mellitus: Status: Acute (6) Seizures: Status: Chronic Permanent problem details: onset 2018, last 2018 (7) Hypertension: Status: Chronic Qualifiers: Hypertension type: essential hypertension Qualified Code(s): I10 - Essential (primary) hypertension Reason for Visit Reason for Visit: abd pain, back pain Hospital Course Hospital Course Nelson is a 47-year-old white male with history of significant alcohol intake and previous pancreatitis who presented to the hospital with abdominal pain. He was diagnosed with acute pancreatitis based on CT findings, elevated lipase, and clinical symptomatology. Clear liquids were initiated as well as pain control. During his hospital stay he had some evidence of alcohol withdrawal and was placed on a CIWA protocol. He improved quicker than expected, and on April 03 denied any significant abdominal pain and diet was initiated without complication. Withdrawal symptoms were also improved. Patient was adamant that he be discharged, was alert and oriented, and demonstrated decisional capacity therefore patient was discharged home. Norvasc was substituted for his lisinopril, as RANCHO inhibitors can rarely cause pancreatitis. It is much more likely that alcohol was the cause. Triglyceride level was also checked in the hospital, and not significantly elevated. He was given an opportunity ask questions, and agreed with the plan on discharge. Physical Exam Narrative: General exam no distress Neck is supple Cardiovascular regular rate and rhythm Lungs clear Abdomen is soft Extremities no cyanosis clubbing edema Discharge Data Studies Completed and Pending Completed Studies During Hospitalization Category Date Time Status CT abdomen pelvis w con* [id number] Stat Cat Scan 04/02/22 04:11 Completed Pending at discharge Category Date Time Status CBC Auto Diff [Complete Blood Count w/Auto] AM LABS Lab 04/04/22 04:00 Ordered CMP [Comprehensive Metabolic Panel] AM LABS Lab 04/04/22 04:00 Ordered Magnesium AM LABS Lab 04/04/22 04:00 Ordered Radiology Impressions Abdomen/Pelvis CT 04/02/22 04:11 IMPRESSION: Acute interstitial pancreatitis. No drainable fluid collections. Laboratory Results WBC 12.1 10^3/uL (4.0-10.0) H 04/03/22 03:29 RBC 4.28 10^6/uL (4.1-5.3) 04/03/22 03:29 Hgb 15.4 g/dL (11.7-16.6) 04/03/22 03:29 Hct 44.6 % (42.0-52.0) 04/03/22 03:29 MCV 104.2 fl (80-94) H 04/03/22 03:29 MCH 36.0 pg (28.0-34.0) H 04/03/22 03: MCHC 34.5 g/dL (30.0-36.0) 04/03/22 03: RDW 13.6 % (12.1-15.1) 04/03/22 03:29 Plt Count 181 10^3/cmm (130-400) 04/03/22 03: MPV 10.4 fL (7.4-10.4) 04/03/22 03:29 Neut % (Auto) 74.5 % 04/03/22 03: Lymph % (Auto) 15.3 % 04/03/22 03:29 [place] % (Auto) 8.3 % 04/03/22 03:29 Eos % (Auto) 0.5 % 04/03/22 03:29 Baso % (Auto) 0.7 % 04/03/22 03:29 Neut # (Auto) 9.03 10^3/uL (1.8-7.7) H 04/03/22 03:29 Lymph # (Auto) 1.9 10^3/uL (0.8-4.8) 04/03/22 03:29 [place] # (Auto) 1.0 10^3/uL (0.2-0.9) H 04/03/22 03:29 Eos # (Auto) 0.1 10^3/uL (0.0-0.8) 04/03/22 03:29 Baso # (Auto) 0.1 10^3/uL (0.0-0.1) 04/03/22 03:29 Nucleated RBC % (auto) 0 % 04/03/22 03:29 Nucleated RBCs # 0.0 /100WBC 04/03/22 03:29 Sodium 136 mmol/L (136-145) 04/03/22 03:29 Potassium 3.6 mmol/L (3.5-5.1) 04/03/22 03:29 Chloride 95 mmol/L (98-107) L 04/03/22 03:29 Carbon Dioxide 27 mmol/L (22-29) 04/03/22 03:29 Anion Gap 17.6 (5-19) 04/03/22 03:29 BUN 4 mg/dL (6-20) L 04/03/22 03:29 Creatinine 1.0 mg/dL (0.7-1.2) 04/03/22 03:29 GFR Calculation 80.4 mL/min (90-130) L 04/03/22 03:29 Glucose 131 mg/dL (65-115) H 04/03/22 03:29 POC Glucose 150 mg/dL (70-110) H 04/03/22 10:38 Calculated Osmolality 281 mOsm/kg (285-295) L 04/03/22 03:29 Calcium 8.1 mg/dL (8.5-10.5) L 04/03/22 03:29 Magnesium 1.3 mg/dL (1.7-2.3) L 04/03/22 03:29 Total Bilirubin 1.0 mg/dL (0.15-1.2) 04/03/22 03:29 AST 102 U/L (0-40) H 04/03/22 03:29 ALT 62 U/L (0-41) H 04/03/22 03:29 Alkaline Phosphatase 75 U/L (40-130) 04/03/22 03:29 Total Protein 7.4 g/dL (6.6-8.7) 04/03/22 03:29 Albumin 3.5 g/dL (3.5-5.2) 04/03/22 03:29 Globulin 3.9 g/dL (1.3-4.6) 04/03/22 03:29 Triglycerides 196 mg/dL (0-150) H 04/02/22 04:13 Lipase 1380 U/L (13-60) H 04/02/22 04:13 TSH 5.40 uIU/mL (0.27-4.20) H 04/02/22 06:19 Urine Color Yellow (Yellow) 04/02/22 04:54 Urine Appearance Clear (CLEAR) 04/02/22 04:54 Urine pH 6.5 (5-7) 04/02/22 04:54 Ur Specific [place] 1.010 (1.005-1.030) 04/02/22 04:54 Urine Protein 1+ (Negative) H 04/02/22 04:54 Urine Glucose (UA) Norm (Normal) 04/02/22 04:54 Urine Ketones Negative (Negative) 04/02/22 04:54 Urine Blood 2+ (Negative) H 04/02/22 04:54 Urine Nitrate Negative (Negative) 04/02/22 04:54 Urine Bilirubin Neg (Negative) 04/02/22 04:54 Urine Urobilinogen Neg mg/dL (Negative) 04/02/22 04:54 Ur Leukocyte Esterase Negative (Negative) 04/02/22 04:54 Urine RBC 0-4 /hpf (0-2) H 04/02/22 04:54 Urine WBC 0-4 /hpf (0-5) H 04/02/22 04:54 Ur Squamous Epith Cells 0-4 /hpf (0-5) H 04/02/22 04:54 Amorphous Sediment Not Reportable 04/02/22 04:54 Urine Bacteria None /hpf (NONE) 04/02/22 04:54 Hyaline Casts 0-4 /lpf H 04/02/22 04:54 Urine Mucus Trace /hpf 04/02/22 04:54 Ethyl Alcohol < 10 mg/dL (0-10) 04/02/22 04:13 Hepatitis A IgM Ab Non-reactive (Nonreactive) 04/02/22 06:19 Hep Bs Antigen Non-reactive (Nonreactive) 04/02/22 06:19 Hep B Core IgM Ab Non-reactive (Nonreactive) 04/02/22 06:19 Hepatitis C Antibody Non-reactive (Nonreactive) 04/02/22 06:19 Vitals Last Vital Signs Temp 98.9 F 04/03/22 11:59 Pulse 75 04/03/22 11:59 Resp 17 04/03/22 11:59 BP 155/99 04/03/22 11:59 Pulse Ox 93 04/03/22 11:59 O2 Del Method 04/02/22 16:00 Discharge Plan Discharge Patient Disposition: Home Condition: Stable Prescriptions: New amlodipine 10 mg Tablet 10 mg PO DAILY Qty: 30 0RF Continued cyclobenzaprine 10 mg tablet 10 mg PO TID PRN (Reason: Muscle Pain) ropinirole 1 mg tablet 1 - 2 mg PO BEDTIME PRN (Reason: Restless Leg(S)) alprazolam 1 mg tablet 0.5 - 1 mg PO BID PRN (Reason: Anxiety) sertraline 100 mg tablet 200 mg PO QAM mupirocin 2 % ointment 1 applic TOPICAL BID PRN (Reason: unknown) fluticasone propionate [Flonase Allergy Relief] 50 mcg/actuation [place],Suspension 2 spray INTRANASAL BID levetiracetam 1,000 mg tablet 1,000 mg PO BID pantoprazole 40 mg Tablet,Delayed Release (Dr/Ec) 40 mg PO BID cetirizine 10 mg Tablet 10 mg PO QAM acetaminophen-codeine 300-30 mg Tablet 1 tab PO Q4H PRN (Reason: Pain) azelastine 137 mcg (0.1 %) Aerosol,[place] 2 spray INTRANASAL BID Rx Instructions: administer into each nostril testosterone cypionate 200 mg/mL Oil 200 mg IM Q30D Rx Instructions: inject 1 ml IM every month in clinic (200 mg/ml) Tradjenta 5 mg Tablet 5 mg PO QAM metoprolol succinate 200 mg tablet extended release 24 hr 200 mg PO QAM acetaminophen 500 mg tablet 500 - 1,000 mg PO Q6H PRN (Reason: Pain) Discontinued lisinopril 40 mg tablet 40 mg PO QAM ibuprofen 200 mg Tablet 600 mg PO Q6H PRN (Reason: Pain) Discharge Orders: Discharge Order (Routine); Ordered 04/03/22 Ordered By: Omega Mckenzie Referrals: Bela Galeano APN [Referring] - 4-7 days Discharge Diet: Low Fat Discharge Activity: Increase activity as tolerated Patient Instructions: Opioid Safety Activity Restrictions/Additional Instructions: No alcohol Medication changes as noted Follow-up with your primary care provider with list of your blood pressures Patient's Health Concerns: Abdominal pain Assessment: Acute pancreatitis Alcohol intake Plan of Treatment: Stop all alcohol Discharge Attestations Time Spent in Discharge Care*: greater than 30 min Quality Metrics Clinical Quality Measures [ No reported AMI, CVA or VTE this stay] Coding Level of Care Code 00352 Total time (in minutes) for Discharge: 38 Diagnoses Acute pancreatitis K85.90 Hyponatremia E87.1 Macrocytosis D75.89 Transaminitis R74.01 Diabetes mellitus E11.9 Seizures R56.9 Hypertension I10 Hypertension type: essential hypertension
== END 2022-04-03 15:38 | disposition home or self-care (01) | DRG 439 ==
LOC: ER 05:11 → MEDSURG 05:27
PROVIDERS: Admitting Provider Internal Medicine; Emergency Provider Emergency Medicine; Visit Provider Internal Medicine
DX: K85.20 Alcohol induced acute pancreatitis without necrosis or infection (principal); E87.1 Hypo-osmolality and hyponatremia; F10.139 Alcohol abuse with withdrawal, unspecified; F10.10 Alcohol abuse, uncomplicated; F41.8 Other specified anxiety disorders; E11.9 Type 2 diabetes mellitus without complications; K21.9 Gastro-esophageal reflux disease without esophagitis; I10 Essential (primary) hypertension; G25.81 Restless legs syndrome; F17.210 Nicotine dependence, cigarettes, uncomplicated; R56.9 Unspecified convulsions; D75.89 Other specified diseases of blood and blood-forming organs; R74.01 Elevation of levels of liver transaminase levels
CPT/HCPCS: 36415; 36416; 74177; 80053; 80074; 80307; 81001; 82962; 83690; 83735; 84443; 84478; 85025; 96361; 96372; 96374; 96375; 99285; C9113; G0378; J0360; J1170; J1815; J2270; J2405; J3411; J3475; J7030; Q9967

== ENCOUNTER 2023-01-16 06:00 | Outpatient (RCR) | payer MEDICARE, MEDICAID, SELFPAY | END 2023-02-10 23:59 | disposition home or self-care (01) | LOC: TPT 06:00 | PROVIDERS: Visit Provider Surgery | DX: M51.36 Other intervertebral disc degeneration, lumbar region (principal); M48.061 Spinal stenosis, lumbar region without neurogenic claudication; M54.16 Radiculopathy, lumbar region | CPT/HCPCS: 97110; 97162 ==

== ENCOUNTER 2024-11-21 02:41 | Observation (INO) | payer MEDICARE, SELFPAY ==
--- OUTSIDE RECORDS SUMMARY | 2024-10-13 09:00 | XMS_ITS ---
Author Organization [facility] Address [address] [place] [address] Care Team Providers Care Stump Shooter Name Role Phone Isacc Rosales Primary Care Provider REASON FOR VISIT 3 MONTH F/U, Pt is in need of an A1C, CBC and CMP to meet POP Health measure, order in labs., Pt isin need of a Urine Microalbumin to meet POP Health measure, order in labs, Pt is in need of a diabetic Foot Exam and Eye Exam Encounters Encounter Location Date Provider Diagnosis [facility] [address] [place] [id number] 10/13/2024 Isacc Rosales Assessments Encounter Date Diagnosis (ICD Code) Assessment Notes Treatment Notes Treatment Clinical Notes Section Notes 10/13/2024 Other Dx: Diabetic diagnosis Pt is due for preventive health screenings. We will set up the appropriate screenings for the patient at the facility of choice. Plan Of Treatment Treatment Notes Assessment Notes Other Dx: Diabetic diagnosis Pt is due for preventive health screenings. We will set up the appropriate screenings for the patient at the facility of choice. Progress Notes * BRENDA FITZPATRICKDOB: 7 (49 yo M)Acc No.[id number]:10/13/2024 Progress Notes Patient: BRENDA TIAN Provider: Aman Rosales MD :1975 A ge:49 Y S ex:Male Date:10/13/2024 Address:[address] [facility], [id number] Subjective: * Chief Complaints: * 3 MONTH F/UPt is in need of an A1C, CBC and CMP to meet POP Health measure, order in labs.Pt is in need of a Urine Microalbumin to meet POP Health measure, order in labsPt is in need of a diabetic Foot Exam and Eye Exam Plan: * Treatment: Care Plan Details* * Electronic signature of Cecy Rosales MD on 11/22/2024 at 02:31 PM CDT Sign off status: Pending * Provider: Aman Rosales MD Date: 0 10/13/2024 Generated for Saturnino hyman/Albertina/Joshitting on: 1 02:31 PM CDT
--- OUTSIDE RECORDS SUMMARY | 2024-10-13 09:00 | XMS_ITS ---
Author Organization [facility] Address [address] [place] [address] Care Team Providers Care Fitness Technician Name Role Phone Isacc Rosales Primary Care [...] Exam Encounters Encounter Location Date Provider Diagnosis [facility] [address] [place] [id number] 10/13/2024 Isacc Rosales Assessments Encounter Date Diagnosis [...] * BRENDA FITZPATRICKDOB: 7 (49 yo M)Acc No.[id number]:10/13/2024 Progress Notes Patient: BRENDA TIAN Provider: Aman Rosales MD :1975 A ge:49 Y S ex:Male Date:10/13/2024 Address:[address] [facility], [id number] Subjective: * Chief Complaints: * 3 MONTH [...] Electronic signature of Cecy Rosales MD on 11/21/2024 at 02:53 AM CDT Sign off status: Pending * Provider: Aman Rosales MD Date: 0 10/13/2024 Generated for Saturnino hyman/Albertina/Kenny on: 1 02:53 AM CDT
[2024-11-21] VITALS (64 sets, daily range): BP systolic 133–207; BP diastolic 83–118; PULSE 53–84; RESP 9–21; TEMP 36.6–36.7; O2SAT 92–97; BMI 28.7
--- OUTSIDE RECORDS SUMMARY | 2024-11-21 02:54 | XMS_ITS | Clinical Summary ---
Author Organization [facility] Address [address] [place] [address] Phone Care Team Providers Care Spray Ii Painter Name Role Phone Sariah Langston APN Primary Care Provider [phone] Allergies No known active allergies Medications sertraline (ZOLOFT) 100 mg tablet Take 200 mg by mouth daily. Active ARIPiprazole (ABILIFY) 10 mg tabletIndicatio ns:Pt unsure of dose Take by mouth daily. Active ALPRAZolam (XANAX) 1 mg tablet Take 1 mg by mouth 2 times daily. Active omeprazole (PriLOSEC) 20 mg Capsule, Delayed Release(E.C.) Take 20 mg by mouth 2 times daily. Active metoprolol tartrate (LOPRESSOR) 50 mg tabletIndicatio ns:Pt unsure of dose Take by mouth 2 times daily. Active multivitamin,ca lcium,minerals, iron,folic acid (THERA-M,THERA- M PLUS) 9 mg iron-400 mcg Tablet Take 1 Tablet by mouth daily. 30 Tablet 1 02/26/2018 Active lisinopril (PRINIVIL) 20 mg tablet Take 1 Tablet (20 mg) by mouth daily. 30 Tablet 1 02/25/2018 4:50 PM PRODUCT DEVELOPMENT ACTUARY 02/25/2018 Active thiamine mononitrate, vit B1, (THIAMINE) 100 mg tablet Take 1 Tablet (100 mg) by mouth daily. 30 Tablet 1 02/26/2018 Active cloNIDine HCl (CATAPRES) 0.2 mg tablet Take 1 Tablet by mouth 3 times daily. 3 02/13/2018 Active levETIRAcetam (KEPPRA) 1,000 mg tablet Take 1 Tablet (1,000 mg) by mouth 2 times daily. +++FOLLOW UP REQUIRED FOR FUTURE REFILLS. PLEASE CALL [phone] OPT 0 TO SCHEDULE.+++ 60 Tablet 10/31/2018 Active Active Problems Problem Noted Date Diagnosed Date Seizures 02/24/2018 Recurrent major depressive disorder, in remissio n 02/24/2018 Essential hypertension, benign 02/24/2018 Insomnia, unspecified 02/24/2018 Allergic rhinitis due to other allergen 02/24/19 19 Alcohol use with alcohol-induced disorder 2018 Chronic diarrhea 02/24/2018 Hyponatremia 02/24/2018 LUPILLO (acute kidney injury) 02/24/2018 Social History Tobacco Use Types Packs/Day Years Used Date Smoking Tobacco: Every Day Cigarettes 0.5 10 Tobacco Cessation:Ready to Q uit: Yes; Counseling Given: Yes Sex and Gender Information Value Date Recorded Sex Assigned at Not on file Legal Sex Male 3:12 AM PRODUCT DEVELOPMENT ACTUARY Gender Identity Not on file Sexual Orientation Not on file Last Filed Vital Signs Vital Sign Reading Time Taken Comments Blood Pressure 138/91 03/27/2018 12:30 PM PRODUCT DEVELOPMENT ACTUARY Pulse 98 03/27/2018 12:30 PM PRODUCT DEVELOPMENT ACTUARY Temperature 36.4 C (97.5 F) 02/25/2018 12:02 PM PRODUCT DEVELOPMENT ACTUARY Respiratory Rate 16 02/25/2018 12:02 PM PRODUCT DEVELOPMENT ACTUARY Oxygen Saturation 100% 02/25/2018 12:02 PM PRODUCT DEVELOPMENT ACTUARY Inhaled Oxygen Concentration - - Weight 116 kg (255 lb 12.8 oz) 03/27/2018 12:30 PM PRODUCT DEVELOPMENT ACTUARY Height 177.8 cm (5' 10 ) 03/27/2018 12:30 PM PRODUCT DEVELOPMENT ACTUARY Body Mass Index 36.7 03/27/2018 12:30 PM PRODUCT DEVELOPMENT ACTUARY Plan of Treatment Health Maintenance Due Date Last Done Comments DTAP/TDAP/TD VACCINES (1 - Tdap) 1995 HEPATITIS B VACCINES (1 of 3 - 19+ 3-dose series) 05/1995 COLORECTAL SCREENING 2021 Colorectal Cancer Screening 2021 FIT-DNA Q 3 years 2021 FIT/FOBT Q 1 year 2021 Flex Sig/CT Colonography Q 5 years 2021 INFLUENZA VACCINE (#1) 2024 Insurance [place]ID [place] [id number] Advance Directives For more information, please contact: [phone] * Full Code (Latest Code Status on File) Date Activated Date Inactivated Comments 02/23/2018 9:47 PM 02/25/2018 7:01 PM Care Teams Spray Ii Painter Relationship Specialty Start Date End Date Sariah Langston APN [facility] [place] [address] PCP - General NURSE PRACTITIONER 02/23/18
--- OUTSIDE RECORDS SUMMARY | 2024-11-21 02:54 | XMS_ITS | Clinical Summary ---
Author Organization [facility] Address [address] [place] [address] Phone Care Team Providers Care Photographic Laboratory Technician Name Role Phone Kendrick Gilman MD Primary Care Provider [phone] Social History Tobacco Use Types Packs/Day Years Used Date Smoking Tobacco: Never Assessed Sex and Gender Information Value Date Recorded Sex Assigned at Not on file Legal Sex Male 3:56 PM PATIENT DAY COORDINATOR Gender Identity Not on file Sexual Orientation Not on file Plan of Treatment Health Maintenance Due Date Last Done Comments Colonoscopy Every 6 Months 1975 Colorectal Cancer Screening Annual FOBT/FIT Test 03/17 Colorectal Cancer Screening Cologuard 1975 Colorectal Cancer Screening Flex Sigmoidoscopy 977 Annual Depression Screening 1987 Annual Physical 1994 Hepatitis C Antibody Screen 1994 DTap/Tdap/Td Vaccines (1 - Tdap) 1995 Colorectal CA Screen 10 Year Colonoscopy 2021 Colorectal Cancer Screening 2021 Flu Vaccine (#1) 10/12/2024 Influenza Vaccine 10/12/2024 Insurance MEDICAID [place] Care Teams Photographic Laboratory Technician Relationship Specialty Start Date End Date Kendrick Gilman MD [address] [place] [address] [place] [address] PCP - General 12/31/19
--- OUTSIDE RECORDS SUMMARY | 2024-11-21 02:54 | XMS_ITS | Encounter Summary ---
Author Organization [facility] Address [address] [place] [address] Care Team Providers Care Survey Research Analyst Name Role Phone Sariah Langston APN Primary Care Provider [phone] Encounter Details Date Type Department Care Team (Late st Contact Info) Description 01/17/2000 Outpatient Historical [address] [address] Social History Tobacco Use Types Packs/Day Years Used Date Smoking Tobacco: Never Assessed Sex and Gender Information Value Date Recorded Sex Assigned at Not on file Legal Sex Male 3:12 AM JOB HONER Gender Identity Not on file Sexual Orientation Not on file documented as of this encounter Plan of Treatment Not on file documented as of this encounter Visit Diagnoses Not on filedocumented in this encounter Care Teams Survey Research Analyst Relationship Specialty Start Date End Date Sariah Langston APN [address] [place] [phone] PCP - General NURSE PRACTITIONER 02/23/18 documented as of this encounter
--- NOTE | 2024-11-21 03:06 | ECG_ITS ---
[facility] 2024-[facility]21 Pat Name: Nelson Copeland Department: Room: Gender: Male Parachute Line Tier: : 1975 Requested By: Artem Galarza Order Number: [id number] Reading MD: EVANS TREVINO Measurements Intervals [place] Rate: 53 P: 51 IA: 132 QRS: 40 QRSD: 86 T: 33 QT: 427 QTc: 404 Interpretive Statements SINUS BRADYCARDIA Compared to ECG 02/23/2018 10:42:57 Sinus tachycardia no longer present T-wave abnormality no longer present Electronically Signed On 11-22-2024 23:23:31 CDT by EVANS TREVINO [email or web address]
--- NOTE | 2024-11-21 03:15 | XRR_ITS ---
PROCEDURE INFORMATION: Exam: XR Chest Exam date and time: 11/21/2024 3:39 AM Age: 49 years old Clinical indication: Chest wall pain; Prior surgery; Surgery date: 6+ months; Surgery type: Spine; Additional info: Cp TECHNIQUE: Imaging protocol: Radiologic exam of the chest. Views: 1 view. COMPARISON: CT abdomen pelvis w con* [id number] 04/02/2022 4:27 AM FINDINGS: Lungs: Unremarkable. No consolidation. Pleural spaces: Unremarkable. No pleural effusion. No pneumothorax. Heart/Mediastinum: Stable cardiomediastinal silhouette. Bones/joints: Cervical spine fusion hardware noted. XR/XR chest 1V portable [id number] IMPRESSION: No acute findings.
[2024-11-21] MEDS: ondansetron 2 mg/ML SDV 2 mL 4 MG IVP ×3 (03:33→10:29)
[2024-11-21] MEDS: morphine 4 mg/mL SDV 1 mL IVP ×2 (03:33→07:22)
[2024-11-21 03:47] LABS: Hematocrit 46.6 % (37-53); Hemoglobin 16.10 g/dL (11.27-16.99); Mean Corpuscular HGB Conc 34.5 g/dL (30-55); Mean Corpuscular Hemoglobin 34.8 pg (27-33); Mean Corpuscular Volume 100.6 fl (82-101); Nucleated Red Blood Cells % 0 %; Platelet Count 181 10^3/cmm (157-399); Red Blood Count 4.63 10^6/uL (3.85-5.65); White Blood Count 12.12 10^3/uL (3.29-11.43)
[2024-11-21] MEDS: lidocaine 2% viscous 15 ML, aluminum-mag hydrox-simethicon 30 ML, sucralfate oral liq 1 GM PO (03:58)
[2024-11-21 04:03] LABS: Add Urine Microscopic? YES; Glucose Urine UA Norm (Normal); Nitrate Urine Negative (Negative); Specific Gravity, Urine 1.030 (1.005-1.030); UA Manual Slide Review YES
--- NOTE | 2024-11-21 04:19 | W.ED.CHESTPA ---
Documented by User: Hans Jarquin DO 11/21/24 07:51 HPI - Chest Pain General: Chief Complaint: ER Hold Stated Complaint: CP, N/V Time Seen by Provider: 11/21/24 03:17 History of Present Illness: 49-year-old male presented to the emergency room overnight with complaints of chest pain and abdominal pain and some emesis with that as well pain into his left shoulder pain with deep inspiration. Patient admits to drink being a drinker he states he has cut back to 2 drinks a day but when asked specifically he has a half a pint or more in each drink and a large tumbler. When total he is drinking a pint or more of hard liquor per day. He has relates that this is a reduction from where he had been drinking. He denies any hematemesis or coffee-ground emesis. Associated symptoms: Reports abdominal pain, nausea and vomiting; Deny dyspnea or fever(s) Related Data Home Medications ?Medication ?Instructions ?Recorded ?Confirmed alprazolam 1 mg tablet 0.5 - 1 mg PO BID PRN Anxiety 08/21/19 11/21/24 fluticasone propionate 50 2 spray intranasal BID 08/21/19 11/21/24 mcg/actuation nasal spray,suspension (Flonase Allergy Relief) levetiracetam 1,000 mg tablet 1,000 mg PO BID 08/21/19 11/21/24 acetaminophen 300 mg-codeine 30 mg 1 tab PO Q4H PRN Pain 04/02/22 11/21/24 tablet acetaminophen 500 mg tablet 500 - 1,000 mg PO Q6H PRN Pain 04/02/22 11/21/24 azelastine 137 mcg (0.1 %) nasal 2 spray intranasal BID 04/02/22 11/21/24 spray allopurinol 300 mg tablet 300 mg PO DAILY 11/21/24 11/21/24 glimepiride 4 mg tablet 4 mg PO DAILY 11/21/24 11/21/24 lansoprazole 30 mg capsule,delayed 30 mg PO BID 11/21/24 11/21/24 release metoprolol succinate 100 mg 100 mg PO DAILY 11/21/24 11/21/24 tablet,extended release 24 hr Allergies Allergy/AdvReac Type Severity Reaction Status Date / Time Sulfa (Sulfonamide Allergy Unknown Verified 04/02/22 08:04 Antibiotics) Review of Systems Const: Denies: fever(s) or chills Card: Reports: chest pain Resp: Denies: dyspnea GI: Reports: abdominal pain, nausea and vomiting : Denies: dysuria, urinary frequency or urinary urgency Musc: Denies: neck pain or back pain Skin/Breast: Denies: rash PFSH ED PFSH: Medical History Diabetes mellitus Acute pancreatitis Depression with anxiety GERD (gastroesophageal reflux disease) Anxiety Restless leg syndrome Degenerative disc disease neck Seizures onset 2018, last 2019 Hypertension Surgical History History of neck surgery History of cholecystectomy No pertinent past surgical history Family History Other CAD (coronary artery disease) Diabetes Hypertension Denies family history of Pancreatitis Social History (Updated 11/21/24 @ 11:44 by Fadi Perez MD) Smoking and tobacco/nicotine status: current every day tobacco/nicotine user cigarettes Alcohol intake: current Alcohol intake frequency: 3 or more drinks per day Alcohol type: hard liquor Substance/Drug Use: current Substance/Drug use type: Marijuana Household members: other Details: 12 year old son Physical Exam Const: GENERAL APPEARANCE: cooperative ORIENTATION/CONSCIOUSNESS: Yes awake, Yes oriented to person, Yes oriented to place and Yes oriented to time HENMT: COMMON NORMALS: normocephalic, atraumatic and hearing grossly normal bilaterally HEAD & SCALP: normocephalic and atraumatic Resp: COMMON NORMALS: normal respiratory effort, No retractions, No use of accessory muscles and clear to auscultation bilaterally AUSCULTATION: clear to auscultation bilaterally Cardio: COMMON NORMALS: regular rate, regular rhythm and No murmurs present (Cardio) RATE: regular rate RHYTHM: regular rhythm GI: AUSCULTATION: Yes normoactive bowel sounds PALPATION: Yes Tenderness to palpation present (GI) Details: LUQ and No Guarding due to palpation present (GI) Extremity: COMMON NORMALS: normal to inspection, capillary refill normal, no clubbing, cyanosis or edema, no calf tenderness and no pedal edema Neuro: SENSORIUM/ORIENTATION: Yes oriented to person, Yes oriented to place and Yes oriented to time Skin: COMMON NORMALS: no rashes or lesions noted GENERAL SKIN EXAM: no rashes or lesions noted Course Vital Signs: Vital signs: Vital Signs Temperature 97.8 F 11/21/24 13:15 Pulse Rate 73 11/21/24 14:39 Respiratory Rate 18 11/21/24 13:15 Blood Pressure 193/94 11/21/24 13:15 Pulse Oximetry 94 11/21/24 13:15 Oxygen Delivery Me thod Room Air 11/21/24 13:32 MDM - Chest Pain Medical Decision Making No sign of acute GI bleed his D-dimer was elevated but CTA of the chest was negative cardiac enzymes and EKG did not show signs of acute coronary syndrome patient does have markedly elevated lipase at over 1900. Believe this is alcohol induced. He is not thrombocytopenic he does have significant elevation of his transaminases with a normal T. bili and alk phos. Discussed findings with the patient will admit started on a CIWA protocol IV fluids ordered for 2 L bolus and 150 an hour discussed with hospitalist orders written Medical Records I reviewed the patient's medical records. Lab Data I reviewed the patient's lab results. 11/21/24 03:33 11/21/24 03:33 Radiology Impressions Chest X-Ray 11/21/24 03:15 IMPRESSION: No acute findings. Chest/Abdomen/Pelvis CT 11/21/24 04:52 IMPRESSION: No pulmonary embolus or other acute pathology in the chest. IMPRESSION: 1. Imaging findings of acute pancreatitis. 2. New hypodense lesion in the pancreatic head, which may represent component of inflammation or mass. Further evaluation with contrast enhanced abdomen MRI once inflammation results recommended. 3. Cirrhotic liver. Hepatic steatosis. Laboratory Results WBC 12.12 10^3/uL (3.29-11.43) H 11/21/24 03:33 RBC 4.63 10^6/uL (3.85-5.65) 11/21/24 03:33 Hgb 16.10 g/dL (11.27-16.99) 11/21/24 03:33 Hct 46.6 % (37-53) 11/21/24 03:33 MCV 100.6 fl (82-101) 11/21/24 03:33 MCH 34.8 pg (27-33) H 11/21/24 03:33 MCHC 34.5 g/dL (30-55) 11/21/24 03:33 RDW 12.7 % (12.1-15.1) 11/21/24 03:33 Plt Count 181 10^3/cmm (157-399) 11/21/24 03:33 MPV 10.1 fL (7.4-10.4) 11/21/24 03:33 Neut % (Auto) 87.8 % 11/21/24 03:33 Lymph % (Auto) 5.6 % 11/21/24 03:33 Whitley % (Auto) 5.9 % 11/21/24 03:33 Eos % (Auto) 0.0 % 11/21/24 03:33 Baso % (Auto) 0.3 % 11/21/24 03:33 Neut # (Auto) 10.63 10^3/uL (1.8-7.7) H 11/21/24 03:33 Lymph # (Auto) 0.7 10^3/uL (0.8-4.8) L 11/21/24 03:33 Whitley # (Auto) 0.7 10^3/uL (0.2-0.9) 11/21/24 03:33 Eos # (Auto) 0.0 10^3/uL (0.0-0.8) 11/21/24 03:33 Baso # (Auto) 0.0 10^3/uL (0.0-0.1) 11/21/24 03:33 Nucleated RBC % (auto) 0 % 11/21/24 03:33 Nucleated RBCs # 0.0 /100WBC 11/21/24 03:33 D-Dimer 2.01 ug/mLFEU (0-0.59) H 11/21/24 03:33 Sodium 137 mmol/L (136-145) 11/21/24 03:33 Potassium 4.7 mmol/L (3.5-5.1) 11/21/24 03:33 Chloride 96 mmol/L (98-107) L 11/21/24 03:33 Carbon Dioxide 18 mmol/L (22-29) L 11/21/24 03:33 Anion Gap 27.7 (5-19) H 11/21/24 03:33 BUN 8 mg/dL (6-20) 11/21/24 03:33 Creatinine 1.0 mg/dL (0.7-1.2) 11/21/24 03:33 GFR Calculation 79.8 mL/min (90-130) L 11/21/24 03:33 Glucose 183 mg/dL (65-115) H 11/21/24 03:33 Calculated Osmolality 287 mOsm/kg (285-295) 11/21/24 03:33 Calcium 9.1 mg/dL (8.5-10.5) 11/21/24 03:33 Total Bilirubin 1.1 mg/dL (0.15-1.2) 11/21/24 03:33 AST 140 U/L (0-40) H 11/21/24 03:33 ALT 87 U/L (0-41) H 11/21/24 03:33 Alkaline Phosphatase 76 U/L (40-130) 11/21/24 03:33 Troponin T Baseline 29 ng/L (0-15) H 11/21/24 03:33 Troponin T 120 Minute 31.45 ng/L (0-15) H 11/21/24 05:15 Delta Troponin T 2.45 ABS# (0-10) 11/21/24 05:15 NT-Pro-B Natriuret Pep 66 pg/mL (0-125) 11/21/24 03:33 Total Protein 8.2 g/dL (6.6-8.7) 11/21/24 03:33 Albumin 4.4 g/dL (3.5-5.2) 11/21/24 03:33 Globulin 3.8 g/dL (1.3-4.6) 11/21/24 03:33 Lipase 1911 U/L (13-60) H 11/21/24 03:33 Urine Color Gilchrist (Yellow) A 11/21/24 03:25 Urine Appearance Clear (CLEAR) 11/21/24 03:25 Urine pH 5 (5-7) 11/21/24 03:25 Ur Specific [place] 1.030 (1.005-1.030) 11/21/24 03:25 Urine Protein 3+ (Negative) H 11/21/24 03:25 Urine Glucose (UA) Norm (Normal) 11/21/24 03:25 Urine Ketones 1+ (Negative) H 11/21/24 03:25 Urine Blood Trace (Negative) H 11/21/24 03:25 Urine Nitrate Negative (Negative) 11/21/24 03:25 Urine Bilirubin 1+ (Negative) H 11/21/24 03:25 Urine Urobilinogen 1 mg/dL (Negative) H 11/21/24 03:25 Ur Leukocyte Esterase Trace (Negative) H 11/21/24 03:25 Urine RBC 5-10 /hpf (0-2) H 11/21/24 03:25 Urine WBC 0-5 /hpf (0-5) 11/21/24 03:25 Ur Squamous Epith Cells 5-10 /hpf (0-5) H 11/21/24 03:25 Amorphous Sediment Not Reportable 11/21/24 03:25 Urine Bacteria 1+ /hpf (NONE) H 11/21/24 03:25 Hyaline Casts >100 /lpf H 11/21/24 03:25 Urine Mucus 1+ /hpf 11/21/24 03:25 All radiology interpretation(s) finalized by discharge EKG Data EKG 1: I personally reviewed and interpreted this EKG as follows: EKG interpretation date: 11/21/24 Prior EKG tracings: available for review Interpretation: EKG 11/21/2024 done at 0306 reviewed at 7 AM (initially reviewed by Dr. Benitez when done in real-time) sinus bradycardia rate 53 IA normal 132 QTc 404. No acute ST changes noted. No previous EKGs available for comparison. EKG 2: I personally reviewed and interpreted this EKG as follows: EKG interpretation date: 11/21/24 Prior EKG tracings: available for review Interpretation: EKG 11/21/2024 5:14 AM reviewed by myself at 7 AM sinus bradycardia rate 55 IA interval 155 QTc [address] changes no significant changes from EKG done earlier same day Discharge Plan Discharge Patient Disposition: Admitted As Inpatient Admit Provider: Fadi Perez Clinical Impression: Pancreatitis, Daily consumption of alcohol, Transaminitis, Atypical chest pain Condition: Stable Sign Out Sign Out Data: Patient Sign Out occurred on 11/21/24 at 06:50. Patient's care was discussed, and care was transferred from Artem Benitez DO to Hans Jarquin DO. Coding Level of Care Code ED Managing Partner for Chg Fwd Heart Score HEART Score Components History: Slightly Suspicous EKG: Normal Age: 45-64 yrs Risk Factors: 1 or 2 Risk Factors Troponin: Baseline Trop 16-45 ng/L HEART Score RESULT HEART Score: 3 Documented by User: Artem Benitez DO 11/21/24 14:44 HPI - Chest Pain General: Chief Complaint: ER Hold Stated Complaint: CP, N/V Time Seen by Provider: 11/21/24 03:17 Related Data Home Medications ?Medication ?Instructions ?Recorded ?Confirmed alprazolam 1 mg tablet 0.5 - 1 mg PO BID PRN Anxiety 08/21/19 11/21/24 fluticasone propionate 50 2 spray intranasal BID 08/21/19 11/21/24 mcg/actuation nasal spray,suspension (Flonase Allergy Relief) levetiracetam 1,000 mg tablet 1,000 mg PO BID 08/21/19 11/21/24 acetaminophen 300 mg-codeine 30 mg 1 tab PO Q4H PRN Pain 04/02/22 11/21/24 tablet acetaminophen 500 mg tablet 500 - 1,000 mg PO Q6H PRN Pain 04/02/22 11/21/24 azelastine 137 mcg (0.1 %) nasal 2 spray intranasal BID 04/02/22 11/21/24 spray allopurinol 300 mg tablet 300 mg PO DAILY 11/21/24 11/21/24 glimepiride 4 mg tablet 4 mg PO DAILY 11/21/24 11/21/24 lansoprazole 30 mg capsule,delayed 30 mg PO BID 11/21/24 11/21/24 release metoprolol succinate 100 mg 100 mg PO DAILY 11/21/24 11/21/24 tablet,extended release 24 hr Allergies Allergy/AdvReac Type Severity Reaction Status Date / Time Sulfa (Sulfonamide Allergy Unknown Verified 04/02/22 08:04 Antibiotics) PFS ED PFSH: Medical History Diabetes mellitus Acute pancreatitis Depression with anxiety GERD (gastroesophageal reflux disease) Anxiety Restless leg syndrome Degenerative disc disease neck Seizures onset 2018, last 2019 Hypertension Surgical History History of neck surgery History of cholecystectomy No pertinent past surgical history Family History Other CAD (coronary artery disease) Diabetes Hypertension Denies family history of Pancreatitis Social History (Updated 11/21/24 @ 11:44 by Fadi Perez MD) Smoking and tobacco/nicotine status: current every day tobacco/nicotine user cigarettes Alcohol intake: current Alcohol intake frequency: 3 or more drinks per day Alcohol type: hard liquor Substance/Drug Use: current Substance/Drug use type: Marijuana Household members: other Details: 12 year old son Course Vital Signs: Vital signs: Vital Signs Temperature 97.8 F 11/21/24 13:15 Pulse Rate 73 11/21/24 14:39 Respiratory Rate 18 11/21/24 13:15 Blood Pressure 193/94 11/21/24 13:15 Pulse Oximetry 94 11/21/24 13:15 Oxygen Delivery Me thod Room Air 11/21/24 13:32 MDM - Chest Pain Lab Data 11/21/24 03:33 11/21/24 03:33 Radiology Impressions Chest X-Ray 11/21/24 03:15 IMPRESSION: No acute findings. Chest/Abdomen/Pelvis CT 11/21/24 04:52 IMPRESSION: No pulmonary embolus or other acute pathology in the chest. IMPRESSION: 1. Imaging findings of acute pancreatitis. 2. New hypodense lesion in the pancreatic head, which may represent component of inflammation or mass. Further evaluation with contrast enhanced abdomen MRI once inflammation results recommended. 3. Cirrhotic liver. Hepatic steatosis. Laboratory Results WBC 12.12 10^3/uL (3.29-11.43) H 11/21/24 03:33 RBC 4.63 10^6/uL (3.85-5.65) 11/21/24 03:33 Hgb 16.10 g/dL (11.27-16.99) 11/21/24 03:33 Hct 46.6 % (37-53) 11/21/24 03:33 MCV 100.6 fl (82-101) 11/21/24 03:33 MCH 34.8 pg (27-33) H 11/21/24 03:33 MCHC 34.5 g/dL (30-55) 11/21/24 03:33 RDW 12.7 % (12.1-15.1) 11/21/24 03:33 Plt Count 181 10^3/cmm (157-399) 11/21/24 03:33 MPV 10.1 fL (7.4-10.4) 11/21/24 03:33 Neut % (Auto) 87.8 % 11/21/24 03:33 Lymph % (Auto) 5.6 % 11/21/24 03:33 Whitley % (Auto) 5.9 % 11/21/24 03:33 Eos % (Auto) 0.0 % 11/21/24 03:33 Baso % (Auto) 0.3 % 11/21/24 03:33 Neut # (Auto) 10.63 10^3/uL (1.8-7.7) H 11/21/24 03:33 Lymph # (Auto) 0.7 10^3/uL (0.8-4.8) L 11/21/24 03:33 Whitley # (Auto) 0.7 10^3/uL (0.2-0.9) 11/21/24 03:33 Eos # (Auto) 0.0 10^3/uL (0.0-0.8) 11/21/24 03:33 Baso # (Auto) 0.0 10^3/uL (0.0-0.1) 11/21/24 03:33 Nucleated RBC % (auto) 0 % 11/21/24 03:33 Nucleated RBCs # 0.0 /100WBC 11/21/24 03:33 D-Dimer 2.01 ug/mLFEU (0-0.59) H 11/21/24 03:33 Sodium 137 mmol/L (136-145) 11/21/24 03:33 Potassium 4.7 mmol/L (3.5-5.1) 11/21/24 03:33 Chloride 96 mmol/L (98-107) L 11/21/24 03:33 Carbon Dioxide 18 mmol/L (22-29) L 11/21/24 03:33 Anion Gap 27.7 (5-19) H 11/21/24 03:33 BUN 8 mg/dL (6-20) 11/21/24 03:33 Creatinine 1.0 mg/dL (0.7-1.2) 11/21/24 03:33 GFR Calculation 79.8 mL/min (90-130) L 11/21/24 03:33 Glucose 183 mg/dL (65-115) H 11/21/24 03:33 Calculated Osmolality 287 mOsm/kg (285-295) 11/21/24 03:33 Calcium 9.1 mg/dL (8.5-10.5) 11/21/24 03:33 Total Bilirubin 1.1 mg/dL (0.15-1.2) 11/21/24 03:33 AST 140 U/L (0-40) H 11/21/24 03:33 ALT 87 U/L (0-41) H 11/21/24 03:33 Alkaline Phosphatase 76 U/L (40-130) 11/21/24 03:33 Troponin T Baseline 29 ng/L (0-15) H 11/21/24 03:33 Troponin T 120 Minute 31.45 ng/L (0-15) H 11/21/24 05:15 Delta Troponin T 2.45 ABS# (0-10) 11/21/24 05:15 NT-Pro-B Natriuret Pep 66 pg/mL (0-125) 11/21/24 03:33 Total Protein 8.2 g/dL (6.6-8.7) 11/21/24 03:33 Albumin 4.4 g/dL (3.5-5.2) 11/21/24 03:33 Globulin 3.8 g/dL (1.3-4.6) 11/21/24 03:33 Lipase 1911 U/L (13-60) H 11/21/24 03:33 Urine Color [place] (Yellow) A 11/21/24 03:25 Urine Appearance Clear (CLEAR) 11/21/24 03:25 Urine pH 5 (5-7) 11/21/24 03:25 Ur Specific [place] 1.030 (1.005-1.030) 11/21/24 03:25 Urine Protein 3+ (Negative) H 11/21/24 03:25 Urine Glucose (UA) Norm (Normal) 11/21/24 03:25 Urine Ketones 1+ (Negative) H 11/21/24 03:25 Urine Blood Trace (Negative) H 11/21/24 03:25 Urine Nitrate Negative (Negative) 11/21/24 03:25 Urine Bilirubin 1+ (Negative) H 11/21/24 03:25 Urine Urobilinogen 1 mg/dL (Negative) H 11/21/24 03:25 Ur Leukocyte Esterase Trace (Negative) H 11/21/24 03:25 Urine RBC 5-10 /hpf (0-2) H 11/21/24 03:25 Urine WBC 0-5 /hpf (0-5) 11/21/24 03:25 Ur Squamous Epith Cells 5-10 /hpf (0-5) H 11/21/24 03:25 Amorphous Sediment Not Reportable 11/21/24 03:25 Urine Bacteria 1+ /hpf (NONE) H 11/21/24 03:25 Hyaline Casts >100 /lpf H 11/21/24 03:25 Urine Mucus 1+ /hpf 11/21/24 03:25 Discharge Plan Discharge Patient Disposition: Admitted As Inpatient Admit Provider: Fadi Perez Clinical Impression: Pancreatitis, Daily consumption of alcohol, Transaminitis, Atypical chest pain Condition: Stable Sign Out Sign Out Data: Patient Sign Out occurred on 11/21/24 at 06:50. Patient's care was discussed, and care was transferred from Artem Benitez DO to Hans Jarquin DO. Coding Level of Care Code ED Managing Partner for Chg Fwd Heart Score HEART Score RESULT HEART Score: 3
[2024-11-21 04:24] LABS: Troponin(5th) Baseline 29 ng/L (0-15)
[2024-11-21 04:30] LABS: Alanine Aminotransferase 87 U/L (0-41); Albumin Level 4.4 g/dL (3.5-5.2); Alkaline Phosphatase 76 U/L (40-130); Aspartate Amino Transferase 140 U/L (0-40); Blood Urea Nitrogen 8 mg/dL (6-20); Calcium 9.1 mg/dL (8.5-10.5); Carbon Dioxide 18 mmol/L (22-29); Chloride 96 mmol/L (98-107); Creatinine Clr Calc Pharmacy 102.3336; Globulin 3.8 g/dL (1.3-4.6); Glucose 183 mg/dL (65-115); NT Pro B Type Natriuretic Pept 66 pg/mL (0-125); Osmolality Calculated 287 mOsm/kg (285-295); Sodium 137 mmol/L (136-145); Total Protein 8.2 g/dL (6.6-8.7)
[2024-11-21 04:50] LABS: Lipase 1911 U/L (13-60)
[2024-11-21 04:51] LABS: Anion Gap 27.7 (5-19); Potassium 4.7 mmol/L (3.5-5.1)
[2024-11-21] MEDS: HYDROmorphone 0.5 MG/0.5 ML INJ 1 MG IVP ×2 (04:52→19:34)
--- NOTE | 2024-11-21 04:52 | CTR_ITS ---
PROCEDURE INFORMATION: Exam: CTA Chest With Contrast Exam date and time: 11/21/2024 5:23 AM Age: 49 years old Clinical indication: Abdominal pain; Generalized; Chest wall pain; Prior surgery; Surgery date: 6+ months; Surgery type: Cspine, lspine, gb; Additional info: Chest and epigastric pain TECHNIQUE: Imaging protocol: Computed tomographic angiography of the chest with contrast. Exam focused on the arteries. 3D rendering (Not supervised by radiologist): MIP and/or 3D reconstructed images were created by the technologist. Radiation optimization: All CT scans at this facility use at least one of these dose optimization techniques: automated exposure control; mA and/or kV adjustment per patient size (includes targeted exams where dose is matched to clinical indication); or iterative reconstruction. Contrast material: OMNIPAQUE 350; Contrast volume: 100 ml; Contrast route: INTRAVENOUS (IV); COMPARISON: CR (CHEST, ) 11/21/2024 3:39 AM RADIATION DOSE METRICS: Total DLP (mGy-cm): 1153.65 FINDINGS: Pulmonary arteries: Normal. No pulmonary emboli. Aorta: Unremarkable. No aortic aneurysm. No aortic dissection. Lungs: Unremarkable. No consolidation. No masses. Pleural spaces: Unremarkable. No pneumothorax. No pleural effusion. Heart: Normal heart size. Coronary atherosclerotic calcifications seen. No pericardial effusion. Lymph nodes: Unremarkable. No enlarged lymph nodes. Bones/joints: Degenerative changes of the spine seen. Soft tissues: Unremarkable. PROCEDURE INFORMATION: Exam: CT Abdomen And Pelvis With Contrast Exam date and time: 11/21/2024 5:23 AM Age: 49 years old Clinical indication: Abdominal pain; Generalized; Chest wall pain; Prior surgery; Surgery date: 6+ months; Surgery type: Cspine, lspine, gb; Additional info: Chest and epigastric pain TECHNIQUE: Imaging protocol: Computed tomography of the abdomen and pelvis with contrast. Radiation optimization: All CT scans at this facility use at least one of these dose optimization techniques: automated exposure control; mA and/or kV adjustment per patient size (includes targeted exams where dose is matched to clinical indication); or iterative reconstruction. Contrast material: OMNIPAQUE 350; Contrast volume: 100 ml; Contrast route: INTRAVENOUS (IV); COMPARISON: CT abdomen pelvis w con* [id number] 04/02/2022 4:27 AM RADIATION DOSE METRICS: Total DLP (mGy-cm): 1153.65 FINDINGS: Heart: Normal heart size. Coronary atherosclerotic calcifications seen. No pericardial effusion. Liver: The liver is diffusely decreased in density, compatible with hepatic steatosis. There is lobulation of the liver contour, consistent with cirrhosis. Gallbladder and biliary ducts: Normal. No calcified stones. No ductal dilation. Pancreas: There is diffuse stranding of the peripancreatic fat. There is a new hypodense lesion in the pancreatic head measuring 1.3 cm. There is mild dilatation of the pancreatic duct measuring 0.5 cm in diameter. No discrete peripancreatic fluid collection seen. Trace amount of fluid seen along the anterior pararenal space bilaterally. The pancreatic parenchyma appears to enhance homogeneously. Spleen: Normal. No splenomegaly. Adrenal glands: Normal. No mass. Kidneys and ureters: Normal. No hydronephrosis. Stomach and bowel: There is diverticulosis without evidence of diverticulitis. Appendix: No evidence of appendicitis. Intraperitoneal space: Unremarkable. No free air. No significant fluid collection. Vasculature: Unremarkable. No abdominal aortic aneurysm. Lymph nodes: Mildly prominent reactive peripancreatic lymph nodes noted. Urinary bladder: Unremarkable as visualized. Reproductive: Unremarkable as visualized. Bones/joints: Degenerative changes of the spine seen. The patient is status post L3-L5 posterior decompression and fusion. Cervical spine fusion hardware noted. Soft tissues: Unremarkable. CT/CT angio chest w abd pel w con IMPRESSION: No pulmonary embolus or other acute pathology in the chest. IMPRESSION: 1. Imaging findings of acute pancreatitis. 2. New hypodense lesion in the pancreatic head, which may represent component of inflammation or mass. Further evaluation with contrast enhanced abdomen MRI once inflammation results recommended. 3. Cirrhotic liver. Hepatic steatosis.
--- NOTE | 2024-11-21 05:14 | ECG_ITS ---
[facility] Date: 2024-[facility]21 Pat Name: Nelson Copeland Department: Room: Gender: Male Paper Winder: : 1975 Requested By: Artem Galarza Order Number: [id number] Reading MD: EVANS TREVINO Measurements Intervals [place] Rate: 55 P: 52 WV: 135 QRS: 38 QRSD: 90 T: 16 QT: 425 QTc: 407 Interpretive Statements SINUS BRADYCARDIA Compared to ECG 11/21/2024 03:06:13 No significant changes Electronically Signed On 11-22-2024 23:30:17 CDT by EVANS TREVINO [email or web address]
[2024-11-21] MEDS: iohexol 350 mg/mL 500 mL Btl (per mL) IV (05:29)
[2024-11-21 05:40] LABS: Troponin 5 2HR 31.45 ng/L (0-15); Troponin 5 2HR Delta 2.45 ABS# (0-10)
[2024-11-21] MEDS: LORazepam 1 MG/0.5 ML injection 2 MG IVP (08:08)
[2024-11-21] MEDS: thiamine 100 mg/mL 2mL SDV IM (08:17)
[2024-11-21] MEDS: multivitamin therapeutic Tablet 1 TAB PO (08:17)
--- NOTE | 2024-11-21 09:15 | ECG_ITS ---
[facility] Date: 2024-11-21 Pat Name: Nelson Copeland Department: Room: Gender: Male Lpn Medical Assistant: : 1975 Requested By: Artem Galarza Order Number: [id number] Reading MD: EVANS TREVINO Measurements Intervals [place] Rate: 59 P: 47 MD: 131 QRS: 20 QRSD: 86 T: -5 QT: 431 QTc: 428 Interpretive Statements SINUS BRADYCARDIA MODERATE T-WAVE ABNORMALITY, CONSIDER INFERIOR ISCHEMIA [-0.1+ mV T-WAVE IN II/aVF] Compared to ECG 02/23/2018 10:42:57 Possible ischemia now present Sinus tachycardia no longer present T-wave abnormality still present Electronically Signed On 11-22-2024 23:30:14 CDT by EVANS TREVINO [email or web address]
[2024-11-21 09:36] LABS: Troponin 5 6HR 28.00 ng/L (0-15)
[2024-11-21 09:41] LABS: Troponin 5 6HR Delta -1.00 ng/L (0-12)
[2024-11-21] MEDS: HYDROmorphone 0.5 MG/0.5 ML INJ IVP (10:29)
--- NOTE | 2024-11-21 11:26 | PM.HP ---
Providers/Chief Complaint Admitting Physician: Dr. Perez Primary Care Provider: Robert Rosales MD Chief Complaint: CP, N/V History of Present Illness Nelson Copeland is a 49 year old male presenting with chest and abdominal pain. The pain started around 11:00 PM yesterday evening. He has diffuse abdominal pain with history of chronic alcoholic pancreatitis. He was having nausea with vomiting yesterday and afterwards started having left sided chest pain that radiated to the shoulder blade and under the axilla. He has history of heavy alcohol use, states that he has now cut down to about one pint per day consisting of two large tumblers of whiskey. Last drink was about 2 days ago. He also smokes marijuana which he says is helping him cut back. He has chronic tremors that started about one month ago which are present this AM, currently admitted with acute abdominal pain, N/V. He is also having increased stress at home and states he has a court date on Saturday for his son. Review of Systems Const: Reports: body aches; Denies: fever(s) or chills Eyes: Denies: change in vision or blurry vision ENMT: Denies: throat pain Card: Reports: chest pain Resp: Denies: dyspnea, productive cough or pain on inspiration GI: Reports: abdominal pain, nausea and vomiting : Denies: dysuria, urinary frequency or urinary hesitancy Musc: Denies: neck pain, back pain or extremity pain Skin/Breast: Denies: rash, pruritus, erythema or skin tenderness Neuro: Denies: headache(s), frequent falls or confusion Psych: Denies: anxiety or depression Medications/Allergies Home Medications ?Medication ?Instructions ?Recorded ?Confirmed ?Last Taken ?Type alprazolam 1 mg tablet 0.5 - 1 mg PO BID PRN Anxiety 08/21/19 11/21/24 11/20/24 History fluticasone propionate 50 2 spray intranasal BID 08/21/19 11/21/24 08/20/19 13:00 History mcg/actuation nasal spray,suspension (Flonase Allergy Relief) levetiracetam 1,000 mg tablet 1,000 mg PO BID 08/21/19 11/21/24 11/20/24 History acetaminophen 300 mg-codeine 30 mg 1 tab PO Q4H PRN Pain 04/02/22 11/21/24 Unknown History tablet acetaminophen 500 mg tablet 500 - 1,000 mg PO Q6H PRN Pain 04/02/22 11/21/24 Unknown History azelastine 137 mcg (0.1 %) nasal 2 spray intranasal BID 04/02/22 11/21/24 Unknown History spray allopurinol 300 mg tablet 300 mg PO DAILY 11/21/24 11/21/24 11/20/24 History glimepiride 4 mg tablet 4 mg PO DAILY 11/21/24 11/21/24 Unknown History lansoprazole 30 mg capsule,delayed 30 mg PO BID 11/21/24 11/21/24 11/20/24 History release metoprolol succinate 100 mg 100 mg PO DAILY 11/21/24 11/21/24 11/20/24 History tablet,extended release 24 hr Allergies Allergy/AdvReac Type Severity Reaction Status Date / Time Sulfa (Sulfonamide Allergy Unknown Verified 04/02/22 08:04 Antibiotics) PFSH Acute PFSH: Medical History Diabetes mellitus Acute pancreatitis Depression with anxiety GERD (gastroesophageal reflux disease) Anxiety Restless leg syndrome Degenerative disc disease neck Seizures onset 2017, last 2018 Hypertension Surgical History History of neck surgery History of cholecystectomy No pertinent past surgical history Family History Other CAD (coronary artery disease) Diabetes Hypertension Denies family history of Pancreatitis Social History (Updated 11/21/24 @ 11:44 by Fadi Perez MD) Smoking and tobacco/nicotine status: current every day tobacco/nicotine user cigarettes Alcohol intake: current Alcohol intake frequency: 3 or more drinks per day Alcohol type: hard liquor Substance/Drug Use: current Substance/Drug use type: Marijuana Household members: other Details: 12 year old son Vitals/I&O/Wt Last Vital Signs Temp 97.8 F 11/21/24 03:03 Pulse 55 L 11/21/24 11:00 Resp 17 11/21/24 10:30 BP 204/117 11/21/24 11:00 Pulse Ox 92 11/21/24 11:00 O2 Del Method Room Air 11/21/24 07:00 11/20/24 11/21/24 11/21/24 22:59 06:59 14:59 Intake Total 0 / 0 1000 / 1000 Balance 0 / 0 1000 / 1000 Weight last 48 hrs Weight 90.718 kg Physical Exam Const: COMMON NORMALS: no acute distress, average body habitus and patient oriented x3 HENMT: COMMON NORMALS: normocephalic and atraumatic Eye: COMMON NORMALS: Equal, round and reactive pupils present and EOMs intact bilaterally Neck/C-Spine: COMMON NORMALS: no lymphadenopathy and supple Resp: COMMON NORMALS: normal respiratory effort, No retractions, No use of accessory muscles and clear to auscultation bilaterally Cardio: COMMON NORMALS: regular rate, regular rhythm, S1 normal heart sound present, S2 normal heart sound present, No gallops present (Cardio), No murmurs present (Cardio) and No rub (Cardio) GI: OTHER: diffuse abdominal tenderness Extremity: NARRATIVE EXTREMITY EXAM: chronic upper extremity tremor Neuro: COMMON NORMALS: patient oriented x3, CN's II-XII intact bilaterally, moves all extremities, no focal motor deficits and no sensory deficits noted Data 11/21/24 03:33 11/21/24 03:33 A&P Assessment and plan 1. Diabetes mellitus: 2. Daily consumption of alcohol: 3. GERD (gastroesophageal reflux disease): 4. Pancreatitis: 5. Seizures: 6. Hypertension: Plan: 49 year old male presenting with chest and abdominal pain. Acute on chronic alcoholic pancreatitis. - recurrent pancreatitis with heavy EtOH consumption. - initiate IV LR at 200 ml/hr - advance pain control EtOH abuse with withdrawal - last use was 2 days ago - lorazepam for EtOH withdrawal PRN ordered - librium taper ordered for 3 days, then stop. Gout - cont. allopurinol Anxiety/depression - cont. home xanax Seasonal allergies - can continue azelastine, flonase GERD 2/2 EtOH use - cont. PPI HTN - cont. metoprolol - more elevated 2/2 withdrawal - PRN hydralazine Seizure history - cont. home keppra DM, unclear type - does not have typical body habitus for type II, may be EtOH induced or monogenic DM - hold home orals currently - SSI Elevated troponins - doubt ACS currently, mild elevation with drop on third draw - can consider ischemic eval with stress test after his pancreatitis is improved. - no evidence of PE/DVT in chest/abdomen/pelvis CTA - CXR clear Diet: CLD, advance as tolerated PPx: SCDs, Lovenox PDMP PDMP Reviewed: Not Reviewed Attestations Medical Necessity Statement*: Anticipate more than 2 midnights for EtOH withdrawal and EtOH pancreatitis. Time Spent in Patient Care: 16 - 35 minutes (>than 50% of time spent in counselling and/or direct pt care on unit). Coding Level of Care Code Acute Code for [facility] Fwd Diagnoses Diabetes mellitus E11.9 Daily consumption of alcohol Z78.9 GERD (gastroesophageal reflux disease) K21.9 Pancreatitis K85.90 Seizures R56.9 Hypertension I10
[2024-11-21] MEDS: LORazepam 1 MG/0.5 ML injection 4 MG IVP (13:12)
[2024-11-21] MEDS: HYDROcodone-acetaminophen 5-325 mg Tablet 1 TAB PO (15:53)
[2024-11-21] MEDS: fluticasone nasal spray 16gm Btl 2 SPRAY INTRANASAL (17:16)
[2024-11-22] VITALS (16 sets, daily range): BP systolic 124–174; BP diastolic 71–99; PULSE 56–98; RESP 12–18; TEMP 36.4–37.7; O2SAT 91–98
[2024-11-22] MEDS: ondansetron 2 mg/ML SDV 2 mL 4 MG IVP (02:25)
[2024-11-22] MEDS: HYDROcodone-acetaminophen 5-325 mg Tablet 1 TAB PO ×2 (03:28→08:30)
[2024-11-22] MEDS: metoprolol succinate ER (24 HR) 100 mg Tablet PO (05:09)
[2024-11-22] MEDS: multivitamin therapeutic Tablet 1 TAB PO (05:10)
[2024-11-22 05:43] LABS: Hematocrit 37.4 % (37-53); Hemoglobin 12.80 g/dL (11.27-16.99); Mean Corpuscular HGB Conc 34.2 g/dL (30-55); Mean Corpuscular Hemoglobin 34.9 pg (27-33); Mean Corpuscular Volume 101.9 fl (82-101); Nucleated Red Blood Cells % 0 %; Platelet Count 98 10^3/cmm (157-399); Red Blood Count 3.67 10^6/uL (3.85-5.65); White Blood Count 8.30 10^3/uL (3.29-11.43)
[2024-11-22 05:55] LABS: Alanine Aminotransferase 43 U/L (0-41); Albumin Level 3.5 g/dL (3.5-5.2); Alkaline Phosphatase 53 U/L (40-130); Anion Gap 17.5 (5-19); Aspartate Amino Transferase 52 U/L (0-40); Blood Urea Nitrogen 9 mg/dL (6-20); Calcium 7.8 mg/dL (8.5-10.5); Carbon Dioxide 25 mmol/L (22-29); Chloride 96 mmol/L (98-107); Creatinine Clr Calc Pharmacy 127.9171; Globulin 3.1 g/dL (1.3-4.6); Glucose 107 mg/dL (65-115); Magnesium 1.0 mg/dL (1.7-2.3); Osmolality Calculated 279 mOsm/kg (285-295); Potassium 3.5 mmol/L (3.5-5.1); Sodium 135 mmol/L (136-145); Total Protein 6.6 g/dL (6.6-8.7)
[2024-11-22 06:47] LABS: Estmated Average Glucose 128; Hemoglobin A1C 6.1 % (4.0-6.0)
[2024-11-22] MEDS: calcium gluconate 0.9% NaCL 1 GM/50 ML PREMIX IV ×2 (08:42→12:04)
[2024-11-22] MEDS: potassium phosphate (mEq K) 40 MEQ in sodium chloride 0.9% (100 ml) 100 ML 27.25 MEQ IV (09:16)
[2024-11-22] MEDS: acetaminophen-codeine 300-30mg Tablet 1 TAB PO (09:51)
--- NOTE | 2024-11-22 11:16 | PC.NURSE ---
Patient refuses second IV, IV meds not compatible, see MAR for late admin.
--- NOTE | 2024-11-22 12:56 | P.DS_ITS ---
Discharge Providers Date of Admission: 11/21/24 07:43 Date of Discharge: November 22, 2024 Attending Provider at Admission: Fadi Perez MD Attending Provider at Discharge: Fadi Perez MD Primary Care Provider: Robert Rosales MD Diagnoses at Discharge Discharge Diagnosis 1. Diabetes mellitus: 2. Daily consumption of alcohol: 3. Gastroesophageal reflux disease without esophagitis: 4. Seizures: 5. Essential hypertension: Reason for Visit Reason for Visit: CP, N/V Brief History: 49 year old male presenting with chest a nd abdominal pain. Hospital Course Hospital Course Acute on chronic alcoholic pancreatitis. - recurrent pancreatitis with heavy EtOH consumption. - initiate IV LR at 200 ml/hr - pain control - diet advanced and patient tolerating. EtOH abuse with withdrawal - last use was 2 days ago - lorazepam for EtOH withdrawal PRN ordered - librium taper ordered for 3 days, then stop. - can D/C prior to taper completion as patient is improved. Gout - cont. allopurinol Anxiety/depression - cont. home xanax Seasonal allergies - can continue azelastine, flonase GERD 2/2 EtOH use - cont. PPI HTN - cont. metoprolol - more elevated 2/2 withdrawal - PRN hydralazine Seizure history - cont. home keppra DM, unclear type - does not have typical body habitus for type II, may be EtOH induced or monogenic DM - hold home orals currently - SSI - resume home regimen after discharge. Elevated troponins - doubt ACS currently, mild elevation with drop on third draw - can consider ischemic eval with stress test after his pancreatitis is improved. - no evidence of PE/DVT in chest/abdomen/pelvis CTA - CXR clear Diet: advanced to regular and tolerating. PPx: SCDs, Lovenox Disposition - Discharge planning for today if pain controlled and tolerating diet. Physical Exam Narrative: Physical Exam Const: no acute distress, average body habi tus and patient or iented x3 HENMT: normocephalic and atraumatic Eye: Equal, round and r eactive pupils pre sent and EOMs inta ct bilaterally Neck/C-Spine: no lymphadenopathy and supple Resp: normal respiratory effort, No retrac tions, No use of a ccessory muscles a nd clear to auscul tation bilaterally Cardio: regular rate, regu lar rhythm, S1/S2 normal. No gallops , No murmurs, No r ub GI: abdominal tenderne ss improved Extremity: chronic upper extr emity tremor impro sima Neuro: patient oriented x 3, CN's II-XII int act bilaterally, m oves all extremiti es, no focal motor deficits and no s ensory deficits no pérez Discharge Data Studies Completed and Pending Completed Studies During Hospitalization Category Date Time Status CTA chest CT abdomen pelvis [CT Angio Chest + Abdomen Cat Scan 11/21/24 04:52 Completed Pelvis w/ contrast; 55674 + 64000] Stat XR chest 1V portable [id number] Stat Exams 11/21/24 03:15 Completed Radiology Impressions Chest X-Ray 11/21/24 03:15 IMPRESSION: No acute findings. Chest/Abdomen/Pelvis CT 11/21/24 04:52 IMPRESSION: No pulmonary embolus or other acute pathology in the chest. IMPRESSION: 1. Imaging findings of acute pancreatitis. 2. New hypodense lesion in the pancreatic head, which may represent component of inflammation or mass. Further evaluation with contrast enhanced abdomen MRI once inflammation results recommended. 3. Cirrhotic liver. Hepatic steatosis. Laboratory Results WBC 8.30 10^3/uL (3.29-11.43) 11/22/24 03:41 RBC 3.67 10^6/uL (3.85-5.65) L 11/22/24 03:41 Hgb 12.80 g/dL (11.27-16.99) 11/22/24 03:41 Hct 37.4 % (37-53) 11/22/24 03:41 MCV 101.9 fl (82-101) H 11/22/24 03:41 MCH 34.9 pg (27-33) H 11/22/24 03:41 MCHC 34.2 g/dL (30-55) 11/22/24 03:41 RDW 12.8 % (12.1-15.1) 11/22/24 03:41 Plt Count 98 10^3/cmm (157-399) L D 11/22/24 03:41 MPV 10.6 fL (7.4-10.4) H 11/22/24 03:41 Neut % (Auto) 73.4 % 11/22/24 03:41 Lymph % (Auto) 15.1 % 11/22/24 03:41 [place] % (Auto) 10.8 % 11/22/24 03:41 Eos % (Auto) 0.1 % 11/22/24 03:41 Baso % (Auto) 0.4 % 11/22/24 03:41 Neut # (Auto) 6.09 10^3/uL (1.8-7.7) 11/22/24 03:41 Lymph # (Auto) 1.3 10^3/uL (0.8-4.8) 11/22/24 03:41 [place] # (Auto) 0.9 10^3/uL (0.2-0.9) 11/22/24 03:41 Eos # (Auto) 0.0 10^3/uL (0.0-0.8) 11/22/24 03:41 Baso # (Auto) 0.0 10^3/uL (0.0-0.1) 11/22/24 03:41 Nucleated RBC % (auto) 0 % 11/22/24 03:41 Nucleated RBCs # 0.0 /100WBC 11/22/24 03:41 D-Dimer 2.01 ug/mLFEU (0-0.59) H 11/21/24 03:33 Sodium 135 mmol/L (136-145) L 11/22/24 03:41 Potassium 3.5 mmol/L (3.5-5.1) 11/22/24 03:41 Chloride 96 mmol/L (98-107) L 11/22/24 03:41 Carbon Dioxide 25 mmol/L (22-29) 11/22/24 03:41 Anion Gap 17.5 (5-19) 11/22/24 03:41 BUN 9 mg/dL (6-20) 11/22/24 03:41 Creatinine 0.8 mg/dL (0.7-1.2) 11/22/24 03:41 GFR Calculation 103.2 mL/min (90-130) 11/22/24 03:41 Glucose 107 mg/dL (65-115) 11/22/24 03:41 POC Glucose 106 mg/dL (70-110) 11/22/24 11:11 Estimat Average Glucose 128 11/22/24 03:41 Hemoglobin A1c 6.1 % (4.0-6.0) H 11/22/24 03:41 Calculated Osmolality 279 mOsm/kg (285-295) L 11/22/24 03:41 Calcium 7.8 mg/dL (8.5-10.5) L 11/22/24 03:41 Phosphorus 1.9 mg/dL (2.5-4.5) L 11/22/24 03:41 Magnesium 1.0 mg/dL (1.7-2.3) L 11/22/24 03:41 Total Bilirubin 1.0 mg/dL (0.15-1.2) 11/22/24 03:41 AST 52 U/L (0-40) H 11/22/24 03:41 ALT 43 U/L (0-41) H 11/22/24 03:41 Alkaline Phosphatase 53 U/L (40-130) 11/22/24 03:41 Troponin T Baseline 29 ng/L (0-15) H 11/21/24 03:33 Troponin T 120 Minute 31.45 ng/L (0-15) H 11/21/24 05:15 Delta Troponin T 2.45 ABS# (0-10) 11/21/24 05:15 Troponin T Hi Sens 6Hr 28.00 ng/L (0-15) H 11/21/24 09:12 Troponin T Hi Sens 6Hr Delta -1.00 ng/L (0-12) L 11/21/24 09:12 NT-Pro-B Natriuret Pep 66 pg/mL (0-125) 11/21/24 03:33 Total Protein 6.6 g/dL (6.6-8.7) 11/22/24 03:41 Albumin 3.5 g/dL (3.5-5.2) 11/22/24 03:41 Globulin 3.1 g/dL (1.3-4.6) 11/22/24 03:41 Lipase 1911 U/L (13-60) H 11/21/24 03:33 Urine Color [place] (Yellow) A 11/21/24 03:25 Urine Appearance Clear (CLEAR) 11/21/24 03:25 Urine pH 5 (5-7) 11/21/24 03:25 Ur Specific [place] 1.030 (1.005-1.030) 11/21/24 03:25 Urine Protein 3+ (Negative) H 11/21/24 03:25 Urine Glucose (UA) Norm (Normal) 11/21/24 03:25 Urine Ketones 1+ (Negative) H 11/21/24 03:25 Urine Blood Trace (Negative) H 11/21/24 03:25 Urine Nitrate Negative (Negative) 11/21/24 03:25 Urine Bilirubin 1+ (Negative) H 11/21/24 03:25 Urine Urobilinogen 1 mg/dL (Negative) H 11/21/24 03:25 Ur Leukocyte Esterase Trace (Negative) H 11/21/24 03:25 Urine RBC 5-10 /hpf (0-2) H 11/21/24 03:25 Urine WBC 0-5 /hpf (0-5) 11/21/24 03:25 Ur Squamous Epith Cells 5-10 /hpf (0-5) H 11/21/24 03:25 Amorphous Sediment Not Reportable 11/21/24 03:25 Urine Bacteria 1+ /hpf (NONE) H 11/21/24 03:25 Hyaline Casts >100 /lpf H 11/21/24 03:25 Urine Mucus 1+ /hpf 11/21/24 03:25 Vitals Last Vital Signs Temp 97.6 F 11/22/24 12:49 Pulse 72 11/22/24 12:00 Resp 18 11/22/24 12:00 BP 159/87 11/22/24 12:00 Pulse Ox 93 11/22/24 12:00 O2 Del Method Room Air 11/22/24 12:00 Discharge Plan Discharge Patient Disposition: Home Condition: Stable Prescriptions: Continued alprazolam 1 mg tablet 0.5 - 1 mg PO BID PRN (Reason: Anxiety) fluticasone propionate [Flonase Allergy Relief] 50 mcg/actuation [place],Suspension 2 spray INTRANASAL BID levetiracetam 1,000 mg tablet 1,000 mg PO BID azelastine 137 mcg (0.1 %) Aerosol,[place] 2 spray INTRANASAL BID Rx Instructions: administer into each nostril acetaminophen 500 mg tablet 500 - 1,000 mg PO Q6H PRN (Reason: Pain) metoprolol succinate 100 mg tablet extended release 24 hr 100 mg PO DAILY lansoprazole 30 mg capsule,delayed release(DR/EC) 30 mg PO BID allopurinol 300 mg tablet 300 mg PO DAILY glimepiride 4 mg tablet 4 mg PO DAILY Patient Comments: Patient states he takes PRn if blood sugar is high acetaminophen-codeine 300-30 mg Tablet 1 tab PO Q4H PRN (Reason: Pain) Qty: 14 0RF Referrals: Robert Rosales MD [Primary Care Provider, Internal Medicine] Discharge Diet: Usual diet Discharge Activity: Resume usual activity Patient Instructions: Opioid Safety, Patient Portal & [place] Instructions Discharge Attestations Time Spent in Discharge Care*: greater than 30 min Specific Discharge Activities: educating patient, educating and/or supporting family/caregiver, discussing with pcp/other providers, discussing with special education case manager/social workers/dc planners, documenting/other paperwork and evaluating patient/reviewing data Quality Metrics Clinical Quality Measures [ No reported AMI, CVA or VTE this stay] Coding Level of Care Code Acute Code for [facility] Fwd Diagnoses Diabetes mellitus E11.9 Daily consumption of alcohol Z78.9 Gastroesophageal reflux disease without esophagitis K21.9 Esophagitis presence: without esophagitis Pancreatitis K85.20 Acute pancreatitis complication: no infection or necrosis Chronicity: acute Pancreatitis type: alcohol induced Seizures R56.9 Essential hypertension I10 Hypertension type: essential hypertension
--- NOTE | 2024-11-22 14:13 | PC.NURSE ---
Education provided to patient both written and verbal on follow up care with his primary care, continued medications, alcohol cessation, pancreatitis, seizures, and hypertension. Patient verbalizes understanding of all teaching. IV removed no complications. Patient brought to personal vehicle where his friend was driving.
--- OUTSIDE RECORDS SUMMARY | 2024-11-22 14:32 | XMS_ITS | Encounter Summary ---
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
--- OUTSIDE RECORDS SUMMARY | 2024-11-22 14:32 | XMS_ITS | Clinical Summary ---
Author Organization [facility] Address [address] [place] [address] Phone Care Team Providers Care Treating Plant Operator Name Role Phone Sariah Langston APN Primary Care Provider [phone] Allergies No known active allergies Medications sertraline [...] daily. 30 Tablet 1 02/25/2018 4:50 PM SPRAY MACHINE LOADER 02/25/2018 Active thiamine mononitrate, vit B1, (THIAMINE) 100 mg tablet Take 1 Tablet (100 mg) by mouth daily. 30 Tablet 1 02/26/2018 Active cloNIDine HCl (CATAPRES) 0.2 mg tablet Take 1 Tablet by mouth 3 times daily. 3 02/13/2018 Active levETIRAcetam (KEPPRA) 1,000 mg tablet Take 1 Tablet (1,000 mg) by mouth 2 times daily. +++FOLLOW UP REQUIRED FOR FUTURE REFILLS. 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 Gender Identity Not on file Sexual Orientation Not on file Last Filed Vital Signs Vital Sign Reading Time Taken Comments Blood Pressure 138/91 03/27/2018 12:30 PM SPRAY MACHINE LOADER Pulse 98 03/27/2018 12:30 PM SPRAY MACHINE LOADER Temperature 36.4 C (97.5 F) 02/25/2018 12:02 PM SPRAY MACHINE LOADER Respiratory Rate 16 02/25/2018 12:02 PM SPRAY MACHINE LOADER Oxygen Saturation 100% 02/25/2018 12:02 PM SPRAY MACHINE LOADER Inhaled Oxygen Concentration - - Weight 116 kg (255 lb 12.8 oz) 03/27/2018 12:30 PM SPRAY MACHINE LOADER Height 177.8 cm (5' 10 ) 03/27/2018 12:30 PM SPRAY MACHINE LOADER Body Mass Index 36.7 03/27/2018 12:30 PM SPRAY MACHINE LOADER Plan of Treatment Health Maintenance Due Date Last Done Comments DTAP/TDAP/TD VACCINES (1 - Tdap) 1995 HEPATITIS B VACCINES (1 of 3 - 19+ 3-dose series) 05/1995 COLORECTAL SCREENING 2021 Colorectal Cancer Screening 2021 FIT-DNA Q 3 years 2021 FIT/FOBT Q 1 year 2021 Flex Sig/CT Colonography Q 5 years 2021 INFLUENZA VACCINE (#1) 2024 Insurance [place]ID [place] [id number] Advance Directives For more information, please contact: [phone] * Full Code (Latest Code Status on File) Date Activated Date Inactivated Comments 02/23/2018 9:47 PM 02/25/2018 7:01 PM Care Teams Treating Plant Operator Relationship Specialty Start Date End Date Sariah Langston APN [facility] [place] [address] PCP - General NURSE PRACTITIONER 02/23/18
--- OUTSIDE RECORDS SUMMARY | 2024-11-22 14:32 | XMS_ITS | Clinical Summary ---
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 Gender Identity Not on file Sexual Orientation Not on file Last Filed Vital Signs Vital Sign Reading Time Taken Comments Blood Pressure 138/91 03/27/2018 12:30 PM CONTINUOUS IMPROVEMENT COACH Pulse 98 03/27/2018 12:30 PM CONTINUOUS IMPROVEMENT COACH Temperature 36.4 C (97.5 F) 02/25/2018 12:02 PM CONTINUOUS IMPROVEMENT COACH Respiratory Rate 16 02/25/2018 12:02 PM CONTINUOUS IMPROVEMENT COACH Oxygen Saturation - - Inhaled Oxygen Concentration - - Weight 116 kg (255 lb 12.8 oz) 03/27/2018 12:30 PM CONTINUOUS IMPROVEMENT COACH Height 177.8 cm (5' 10 ) 03/27/2018 12:30 PM CONTINUOUS IMPROVEMENT COACH Body Mass Index 36.7 03/27/2018 12:30 PM CONTINUOUS IMPROVEMENT COACH Plan of Treatment Health Maintenance Due Date Last Done Comments DTAP/TDAP/TD VACCINES (1 - Tdap) 1995 HEPATITIS B VACCINES (1 of 3 - 19+ 3-dose series) 05/1995 COLORECTAL SCREENING 2021 Colorectal Cancer Screening 2021 FIT-DNA Q 3 years 2021 FIT/FOBT Q 1 year 2021 Flex Sig/CT Colonography Q 5 years 2021 INFLUENZA VACCINE (#1) 2024 Care Teams Bleach Chlorinator Relationship Specialty Start Date End Date Sariah Langston APN [address] [place] [phone] PCP - General NURSE PRACTITIONER 02/23/18
--- OUTSIDE RECORDS SUMMARY | 2024-11-22 14:32 | XMS_ITS | Clinical Summary ---
Author Organization [facility] Address [address] [place] [address] Phone Care Team Providers Care Audit Clerks Supervisor Name Role Phone Kendrick Gilman MD Primary Care Provider [phone] Social History Tobacco Use Types Packs/Day Years Used Date Smoking Tobacco: Never Assessed Sex and Gender Information Value Date Recorded Sex Assigned at Not on file Legal Sex Male 3:56 PM STAIN SPRAYER Gender Identity Not on file Sexual Orientation [...] (#1) 10/12/2024 Influenza Vaccine 10/12/2024 Insurance [place]ID [place] Care Teams Audit Clerks Supervisor Relationship Specialty Start Date End Date Kendrick Gilman MD [address] [place] [address] [place] [address] PCP - General 12/31/19
== END 2024-11-22 14:05 | disposition home or self-care (01) ==
LOC: ER 07:51 → ICU 12:45
PROVIDERS: Emergency Medicine; Admitting Provider Internal Medicine; Emergency Provider Family Medicine; PCP Internal Medicine; Visit Provider Internal Medicine
DX: K85.20 Alcohol induced acute pancreatitis without necrosis or infection (principal); E11.9 Type 2 diabetes mellitus without complications; Z78.9 Other specified health status; K21.9 Gastro-esophageal reflux disease without esophagitis; R56.9 Unspecified convulsions; I10 Essential (primary) hypertension; F41.8 Other specified anxiety disorders; F17.210 Nicotine dependence, cigarettes, uncomplicated
CPT/HCPCS: 36415; 36416; 71045; 71275; 74177; 80053; 81001; 82962; 83036; 83690; 83735; 83880; 84100; 84484; 85025; 85378; 93005; 96361; 96365; 96366; 96372; 96375; 96376; 99285; G0378; J0612; J1171; J1650; J1815; J2060; J2270; J2405; J3411; J7030; J7120; J9999